=== PATIENT | female | born 1950 | race Caucasian/White ===

== ENCOUNTER 2016-08-05 07:02 | Inpatient (IN) | payer MEDICARE, OTHER ==
[2016-07-17 10:21] VITALS: BMI 25.0
--- NOTE | 2016-07-17 11:05 | PAT Medication Instructions ---
Service Date July 17, 2016. Current Home Medication List Acetaminophen Tab (Tylenol), 325 MG PO PRN Alum & Mag Hydrox-Simethicone (Mylanta), 1 DOSE PO PRN Amlodipine (Norvasc), 2.5 MG PO QAM Aspirin (Aspirin Ec), 81 MG PO QAM Atorvastatin (Lipitor), 80 MG PO QAM Calcium Carbonate-Vitamin D (Calcium + D), 1 TAB PO BID Metoprolol Tartrate (Lopressor) (Lopressor), 50 MG PO QAM Multivitamins/Minerals (Mvi With Minerals), 1 TAB PO QAM Triamterene/Hctz (Triamterene/Hctz 37.5-25MG), 1 TAB PO QAM Medication Instructions For Your Scheduled Surgery - Hold the following medications the morning of surgery: Alum & Mag Hydrox-Simethicone (Mylanta), 1 DOSE PO PRN Calcium Carbonate-Vitamin D (Calcium + D), 1 TAB PO BID Multivitamins/Minerals (Mvi With Minerals), 1 TAB PO QAM Triamterene/Hctz (Triamterene/Hctz 37.5-25MG), 1 TAB PO QAM - Take the following medications the morning of surgery with a sip of water OTHERWISE NOTHING TO EAT OR DRINK AFTER MIDNIGHT: Amlodipine (Norvasc), 2.5 MG PO QAM Aspirin (Aspirin Ec), 81 MG PO QAM Atorvastatin (Lipitor), 80 MG PO QAM Acetaminophen Tab (Tylenol), 325 MG PO PRN (may take if needed up to 4 hours prior to surgery) Metoprolol Tartrate (Lopressor) (Lopressor), 50 MG PO QAM - Take the following medications as scheduled the night before surgery: Acetaminophen Tab (Tylenol), 325 MG PO PRN Calcium Carbonate-Vitamin D (Calcium + D), 1 TAB PO BID If you have any questions please call us at [phone] or [phone] or [phone]
[2016-07-17 11:32] LABS: BASO % 0.3 %; BASO ABS # 0.04 K/uL (0-0.2); COMPLETE YES; EOS % 1.5 %; HEMATOCRIT 42.9 % (37-47); IG% 0.2 %; LYMPH % 22.7 %; LYMPH ABS # 2.76 K/uL (1.2-3.4); MEAN CELL VOLUME 94.7 fL (80-100); MEAN CORPUSCULAR HEMOGLOBIN 31.1 pg (25-34); MEAN CORPUSCULAR HGB CONC 32.9 g/dl (32-36); MEAN PLATELET VOLUME 10.9 fL (7.4-10.4); MONO % 6.3 %; PLATELET COUNT 205 K/uL (130-400); RED BLOOD COUNT 4.53 M/uL (4.2-5.4); WHITE BLOOD COUNT 12.14 K/uL (4.8-10.8)
[2016-07-17 11:37] LABS: URINE APPEARANCE CLEAR (CLEAR); URINE BILIRUBIN NEG (NEG); URINE COLOR YELLOW; URINE NITRITE NEG (NEG); URINE PH 7.5 (4.5-7.5); URINE SPECIFIC GRAVITY 1.008 (1.000-1.030); UROBILINOGEN NEG (NEG)
[2016-07-17 11:38] LABS: MANUAL MICROSCOPIC REQUIRED? NO; REVIEW REQ? NO
--- NOTE | 2016-07-17 11:48 | DIAGNOSTIC IMAGING REPORT ---
CHEST PREADMISSION(PA/LAT) CLINICAL HISTORY: Preoperative chest COMPARISON STUDY: No previous studies for comparison. FINDINGS: The cardiac and mediastinal contours are normal. There is no evidence of focal pulmonary consolidation. There is no evidence of failure. No pleural effusions are visualized.[ IMPRESSION: No active disease in the chest. Electronically signed by: Dallas Garcia M.D. 07/17/2016 11:46 AM Dictated Date/Time: 07/17/2016 11:45 AM
[2016-07-17 12:50] LABS: BUN/CREATININE RATIO 12.4 (10-20); CREATININE 0.7 mg/dl (0.60-1.20); POTASSIUM 3.6 mmol/L (3.5-5.1)
[2016-07-17 13:08] LABS: CALCIUM 10.4 mg/dl (8.5-10.1)
[2016-08-05] VITALS (9 sets, daily range): BP systolic 103–151; BP diastolic 55–74; PULSE 59–80; TEMP 36.3–36.8; O2SAT 92–99; Ht 170.2 cm; Wt 72.8 kg
[~2016-08-05] VITALS: Ht 170.2 cm; Wt 72.8 kg
[~2016-08-05 07:02] MED LIST: ACET325T96 PO; ALUM-30 PO; AMLO2.5T PO; ASPI81TA28 PO; ATOR-26 PO; ATROPINE SULFATE 0.1 MG/ML 5ML SYR IV PRN; CALC600T9 PO; CLINDAMYCIN 600 MG/54 ML D5W IV SCH; EpHEDrine SULFATE INJ 50 MG/ML AMP IV PRN; FENTANYL CITRATE INJ 50 MCG/1 ML 2 ML VIAL IV PRN; HYDROmorphone INJ 1 MG/ML SYR IV PRN; LACTATED RINGER'S 1000ML 1,000 ML IV SCH; METO50TA16 PO; MULT-513 PO; ONDANSETRON INJ 2 MG/ML 2 ML VIAL IV PRN; TRIATAB3 PO
[2016-08-05] MEDS ORDERED: FENTANYL CITRATE INJ 50 MCG/1 ML 2 ML VIAL ONE ×2 (08:25→09:19)
[2016-08-05] MEDS ORDERED: MIDAZOLAM HCL 1 MG/ML 2ML VIAL ONE (08:25)
--- NOTE | 2016-08-05 08:26 | History & Physical Bridge Note ---
H&P Re-Evaluation Bridge Note: I have examined the patient, reviewed the History & Physical and in the interval since the performance of the History & Physical I have noted the following changes of clinical significance: No changes noted
--- NOTE | 2016-08-05 08:27 | History and Physical ---
History & Physical Date Aug 05, 2016. Chief Complaint back and leg pain History of Present Illness The patient is a 66 year old female with complaints of Additional History Hepatic Disease: No Endocrine Disorder: No Kidney Disease: No Hypertension: No Heart Disease: No Bleeding Tendencies: No Infectious Diseases: No Allergies Coded Allergies: Penicillins (Unverified Allergy, Unknown, THROAT SWELLING-ANAPHYLACTIC, 08/05/16) Sulfa Antibiotics (Unverified Allergy, Unknown, GI UPSET-NAUSEA AND VOMITING, 08/05/16) Home Medications Scheduled Acetaminophen Tab (Tylenol), 325 MG PO PRN Alum & Mag Hydrox-Simethicone (Mylanta), 1 DOSE PO PRN Amlodipine (Norvasc), 2.5 MG PO QAM Aspirin (Aspirin Ec), 81 MG PO QAM Atorvastatin (Lipitor), 80 MG PO QAM Calcium Carbonate-Vitamin D (Calcium + D), 1 TAB PO BID Metoprolol Tartrate (Lopressor) (Lopressor), 50 MG PO QAM Multivitamins/Minerals (Mvi With Minerals), 1 TAB PO QAM Triamterene/Hctz (Triamterene/Hctz 37.5-25MG), 1 TAB PO QAM Physical Examination Skin: warm/dry, no rash Eyes: normal inspection, EOMI, sclerae normal ENT: normal ENT inspection, pharynx normal Head: normocephalic, atraumatic Neck: supple, no adenopathy, trachea midline Respiratory/Chest: lungs clear, normal breath sounds, no respiratory distress Cardiovascular: regular rate, rhythm, no edema, no murmur Abdomen / GI: normal bowel sounds, non tender Back: normal inspection Extremities: normal inspection, normal range of motion Neurologic/Psych: no motor/sensory deficits, alert, normal reflexes, oriented x 3 Diagnosis lumbar stenosis Plan of Treatment decompression fusion L4-5
[2016-08-05] MEDS ORDERED: BUPIVACAINE/EPINEPHRINE 0.5% MPF 1:200,000 30 ML VIAL ONE (08:46)
[2016-08-05] MEDS ORDERED: BACITRACIN 50000 UNIT VIAL ONE (08:46)
[2016-08-05] MEDS ORDERED: HYDROmorphone INJ 2 MG/ML SYR/VIAL ONE ×2 (09:19→10:30)
[2016-08-05] MEDS ORDERED: SODIUM CHLORIDE 0.9% PF 50 ML VIAL ONE (09:48)
[2016-08-05] MEDS ORDERED: FLOSEAL HEMOSTATIC MATRIX 10ML TOP ONE (10:27)
[2016-08-05] MEDS ORDERED: SODIUM CHLORIDE 0.9% 1000ML 1,000 ML IV SCH (10:28)
--- NOTE | 2016-08-05 10:28 | [facility] Post Operative Brief Note ---
Immediate Operative Summary Operative Date Aug 05, 2016. Pre-Operative Diagnosis Lumbar Stenosis Post-Operative Diagnosis Lumbar Stenosis Procedure(s) Performed L4-L5 Lumbar Laminectomy, Decompression; Pedicle Screw Fixation; Placement of Interbody Device; L4-L5 Posterolateral Fusion; Application of Yulissa; Bone Morphogenetic Protein Surgeon Dr. Panchal Container Shop Welder Surgeon(s) Lynn Malave PA-C Estimated Blood Loss 300 cc Findings stenosis Specimens none per surgeon
[2016-08-05] MEDS ORDERED: METOCLOPRAMIDE HCL INJ 5 MG/ML 2 ML VIAL IV PRN (10:30)
[2016-08-05] MEDS ORDERED: DC PCA PRN (10:30)
[2016-08-05] MEDS ORDERED: MAGNESIUM HYDROXIDE SUSP 30 ML UDC PO PRN (10:30)
[2016-08-05] MEDS ORDERED: DO NOT ADMINISTER PNEUMOCOCCAL VACCINE PRN ×2 (10:30)
[2016-08-05] MEDS ORDERED: ONDANSETRON INJ 2 MG/ML 2 ML VIAL IV PRN (10:30)
[2016-08-05] MEDS ORDERED: SOD PHOSPHATE/SOD BIPHOSPHATE ENEMA 132 ML BTL PR PRN (10:30)
[2016-08-05] MEDS ORDERED: ALUMINUM/MAGNESIUM SUSP 30 ML UDC PO PRN (10:30)
[2016-08-05] MEDS ORDERED: BISACODYL 10 MG SUPP PR PRN (10:30)
[2016-08-05] MEDS ORDERED: NALOXONE HCL 0.4 MG/1 ML VIAL/CARP IV PRN ×2 (10:30)
[2016-08-05] MEDS ORDERED: ACETAMINOPHEN 500 MG TAB PO PRN (10:30)
[2016-08-05] MEDS ORDERED: DO NOT ADMINISTER FLU VACCINE PRN ×3 (10:30)
[2016-08-05] MEDS ORDERED: LORAZEPAM 0.5 MG TAB PO PRN (10:30)
[2016-08-05] MEDS ORDERED: PROMETHAZINE HCL INJ 12.5 MG in SODIUM CHLORIDE 0.9% 50ML 50 ML IV PRN (10:30)
[2016-08-05] MEDS ORDERED: FAMOTIDINE 20 MG TAB PO PRN (10:30)
[2016-08-05] MEDS ORDERED: LORAZEPAM INJ 0.5 MG in SYRINGE 0 ML IV PRN (10:30)
[2016-08-05] MEDS ORDERED: ACETAMINOPHEN IV 100 ML IV PRN (10:30)
[2016-08-05] MEDS ORDERED: hydrOXYzine HCL 25 MG TAB PO PRN (10:30)
--- NOTE | 2016-08-05 10:31 | DIAGNOSTIC IMAGING REPORT ---
INTRAOPERATIVE FLUOROSCOPIC IMAGES OF THE LUMBAR SPINE CLINICAL HISTORY: L4-5 DECOMPRESSION/FUSION/INTERBODY COMPARISON STUDY: No previous studies for comparison. Fluoroscopy time: 15.1 seconds. FINDINGS: These 2 fluoroscopic images demonstrate an L4-5 discectomy with interbody spacer placement. There is a posterior decompression with bilateral particle screws at the L4-L5 levels. Hardware is intact. There are interconnecting rods. IMPRESSION: Expected findings following L4-5 discectomy and bilateral pedicle screw fusion. Electronically signed by: Chivo Woodall M.D. 08/05/2016 10:30 AM Dictated Date/Time: 08/05/2016 10:29 AM
[2016-08-05] MEDS ORDERED: EpHEDrine SULFATE 50MG/5ML SYR ONE (10:32)
[2016-08-05] MEDS ORDERED: LIDOCAINE HCL 2% 2 ML VIAL (20MG/ML) ONE (10:32)
[2016-08-05] MEDS ORDERED: NEOSTIGMINE METHYLSULFATE 1 MG/ML 10ML VIAL ONE (10:32)
[2016-08-05] MEDS ORDERED: DEXAMETHASONE SOD INJ 4 MG/ML VIAL ONE (10:32)
[2016-08-05] MEDS ORDERED: PROPOFOL IV EMULSION 10 MG/ML 20 ML VIAL IV ONE (10:32)
[2016-08-05] MEDS ORDERED: GLYCOPYRROLATE INJ 0.2 MG/ML VIAL ONE (10:32)
[2016-08-05] MEDS ORDERED: ROCURONIUM BROMIDE 10 MG/ML 5 ML VIAL ONE (10:32)
[2016-08-05] MEDS ORDERED: KETOROLAC TROMETHAMINE 30 MG/ML VIAL ONE (10:32)
[2016-08-05] MEDS ORDERED: ONDANSETRON INJ 2 MG/ML 2 ML VIAL ONE (10:32)
[2016-08-05] MEDS ORDERED: HYDROmorphone HCL 0.5MG/ML 50 ML CASSETTE ONE (10:46)
--- NOTE | 2016-08-05 11:19 | Anesthesiology Progress Note ---
Anesthesia Post Op Note Date & Time Aug 05, 2016 at 11:18 Vital Signs Pain Intensity: 0 Vital Signs Past 12 Hours Date Time Temp Pulse Resp B/P (MAP) Pulse Ox O2 Delivery O2 Flow Rate FiO2 08/05/16 11:15 70 18 118/64 100 Nasal Cannula 4 08/05/16 11:05 67 12 122/54 100 Nasal Cannula 4 08/05/16 10:55 68 13 113/52 100 Mask 10 08/05/16 10:45 74 18 119/55 100 Mask 10 08/05/16 10:39 36.3 86 13 121/57 100 Mask 10 08/05/16 08:07 36.7 80 18 151/74 97 Room Air Notes Mental Status: alert / awake / arousable, participated in evaluation Pt Amnestic to Procedure: Yes Nausea / Vomiting: adequately controlled Pain: adequately controlled Airway Patency, RR, SpO2: stable & adequate BP & HR: stable & adequate Hydration State: stable & adequate Anesthetic Complications: no major complications apparent
[2016-08-05] MEDS: LACTATED RINGER'S 1000ML 1,000 ML IV SCH ×2 (12:41→17:51)
--- NOTE | 2016-08-05 12:59 | OPERATIVE REPORT ---
DATE OF OPERATION: 08/05/2016 PREOPERATIVE DIAGNOSES: Spinal stenosis, herniated nucleus pulposus L4-5. POSTOPERATIVE DIAGNOSES: Same. PROCEDURES PERFORMED: 1. Lumbar decompression, medial facetectomy, and foraminotomy L3-4, L4-5. 2. Posterior spinal fusion L4-5. 3. Placement posterior instrumentation using Orthros rods and screws L4-5. 4. Interbody fusion L3-4. 5. Placement of PEEK cage 12 x 22 mm at L4-5. 6. Placement of locally harvested morcellized autograft posterior gutters. 7. Placement of Infuse collagen sponge combined with Mastergraft in posterior gutters and Yulissa bone grafting in the interbody space. SURGEON: Dr. Aureliano Panchal. MAINTENANCE PERSON: Lynn Malave PA-C. Due to the complex nature of the procedure, the entire surgery was performed with the printer's assistant of TONI Emmanuel. The media assistant, under direct supervision, was involved in the actual performance of all aspects of the surgical procedure including hemostasis, tissue retraction and incision, instrument management, patient positioning, and wound closure. ANESTHESIA: General. DISPOSITION: The patient awakened and taken to PACU in stable condition. HISTORY OF PATIENT'S PROBLEMS: This is a 66-year-old female who presents with above-mentioned diagnosis after failing an extensive course of nonoperative care, elected to undergo the above-mentioned procedure. Risks, benefits, pros, cons, and alternatives outlined in detail preoperatively. DESCRIPTION OF PROCEDURE: The patient was met with preoperatively, case discussed and all questions were addressed. At that point, the patient was taken back to the operative suite and after undergoing successful general endotracheal intubation via department of anesthesia was placed in prone position on Silverio table atop Mike frame. All bony prominences were well padded and the eyes were inspected to ensure there was no external pressure placed upon them. At this point, lumbar spine was prepped and draped in normal sterile fashion. Sharp dissection with the assistance of Bovie cautery was performed down to and exposing the lamina and transverse processes of L4-5 bilaterally. From a caudal to cephalad fashion, complete laminectomy of L4 was performed, partial laminectomy of L3 was performed as well as medial facetectomies, foraminotomies bilaterally to address significant facet hypertrophy and subsequent stenosis. After this was complete, pedicle screws were then placed in L4-5 bilaterally with assistance of fluoroscopy and appropriate size silviano provisionally placed. Through a transforaminal approach on the left, a complete discectomy of L4-5 was performed. Endplates were curetted to subcortical bleeding bone and a 12 x 22 mm PEEK cage filled with Yulissa bone grafting tapped into position. The rods were then compressed, locked into final position bilaterally and transverse processes of L4-5 burred to subcortical bleeding bone. Infuse collagen sponge combined with Mastergraft and locally harvested morcellized autograft was placed in the posterior gutters. A 7 flat SAMANTHA drain was inserted. Incision was closed with #1 Vicryl in the fascia, 2-0 Vicryl subcutaneously, 4-0 Monocryl for final skin closure. Steri-Strips and sterile dressing placed. The patient was awakened and taken to PACU in stable condition. I attest to the content of the Intraoperative Record and any orders documented therein. Any exception s are noted below.
[2016-08-05] MEDS: HYDROmorphone HCL 0.5MG/ML 50 ML CASSETTE IV PRN ×3 (15:07→23:05)
[2016-08-05] MEDS: DEXAMETHASONE INJ 6 MG in SYRINGE 0 ML IV SCH (17:51)
[2016-08-05] MEDS: CLINDAMYCIN IV 600 MG in DEXTROSE 5% ADD-VANTAGE 50ML 50 ML IV SCH (17:52)
[2016-08-05] MEDS: DOCUSATE SODIUM/SENNA 50/8.6MG TAB PO SCH (21:06)
[2016-08-06] MEDS: CLINDAMYCIN IV 600 MG in DEXTROSE 5% ADD-VANTAGE 50ML 50 ML IV SCH (01:08)
[2016-08-06] MEDS: LACTATED RINGER'S 1000ML 1,000 ML IV SCH (01:09)
[2016-08-06] MEDS: DEXAMETHASONE INJ 6 MG in SYRINGE 0 ML IV SCH ×2 (01:09→15:23)
[2016-08-06 03:35] VITALS: BP 121/69; PULSE 77; TEMP 36.8; O2SAT 91
[2016-08-06] MEDS ORDERED: NURSING VERBAL MED ORDER ONE (05:45)
[2016-08-06] MEDS ORDERED: HYDROmorphone INJ 1 MG/ML SYR IV PRN (06:00)
[2016-08-06] MEDS ORDERED: OXYCODONE HCL IR 5 MG TAB (IMMEDIATE RELEASE) PO PRN (06:00)
[2016-08-06 07:25] VITALS: O2SAT 91
[2016-08-06 07:36] VITALS: BP 134/74; PULSE 70; TEMP 36.7; O2SAT 95
[2016-08-06 07:36] LABS: BASO ABS # 0.01 K/uL (0-0.2); COMPLETE YES; HEMATOCRIT 34.1 % (37-47); IG% 0.3 %; LYMPH ABS # 1.05 K/uL (1.2-3.4); MEAN CELL VOLUME 92.9 fL (80-100); MEAN CORPUSCULAR HEMOGLOBIN 31.1 pg (25-34); MEAN CORPUSCULAR HGB CONC 33.4 g/dl (32-36); MEAN PLATELET VOLUME 11.3 fL (7.4-10.4); MONO % 4.2 %; NEUT % 90.5 %; PLATELET COUNT 156 K/uL (130-400); RED BLOOD COUNT 3.67 M/uL (4.2-5.4); WHITE BLOOD COUNT 21.18 K/uL (4.8-10.8)
[2016-08-06] MEDS ORDERED: RXC5 PO (07:45)
--- NOTE | 2016-08-06 07:46 | Discharge Instructions ---
Discharge Instructions Date of Service Aug 06, 2016. Admission Reason for Admission: Spinal Stenosis Discharge Discharge Diagnosis / Problem: stenosis Discharge Goals Goal(s): Improve function Activity Recommendations Activity Limitations: per Instructions/Follow-up section . Instructions / Follow-Up Instructions / Follow-Up ACTIVITY RECOMMENDATIONS: SELF CARE INSTRUCTIONS AFTER THORACIC/LUMBAR FUSIONS 1. You may walk to your tolerance. It is good exercise for your legs and back. Expect some back and intermittent leg aches and pains. 2. You may perform "counter-top" level activities (make a sandwich, garrett with a project, etc.). 3. No bending or lifting of more than 10 pounds or back twisting of any nature (roll like a log when turning in bed). 4. You may ride in a car for 20-30 minutes at a time. No driving until after your first visit with your doctor. 5. Frequent changes of position and restricting sitting to 30 minutes at a time will help limit the amount of back spasms and stiffness you may experience. 6. You may discontinue the use of ambulatory aids (cane, crutches, etc.) once your strength and confidence allow. 7. You may sales and catering coordinator the shower and let water strike your incision when you arrive home at least once daily. Do not take a tub bath, sit in a hot tub or go into a swimming pool until after your first recheck in the office. SPECIAL CARE INSTRUCTIONS: VERY IMPORTANT TO READ AND REVIEW A. Your surgical incision has been closed with a cosmetic suture under the skin that will dissolve in about 6 weeks. In 14 days, you can use a pair of clean scissors and cut the suture that is left outside of the skin at the ends of your incision. 1. The small skin tapes can be removed 7 days after surgery if they have not fallen off by that point. 2. You may keep the wound open to air as much as possible to promote healing after post-op day number 5 unless told otherwise by your doctor. 3. If you think the wound looks like it is becoming infected (redness or worsening drainage) and/or you are experiencing fever, chill or worsening back pain and muscle spasms, contact the office so that we may evaluate you as soon as possible. B. Complications are uncommon, but please contact us if you have any signs or symptoms of: 1. wound infection (fever higher than 102.5 degrees F, redness, separation of wound, drainage, or increasing pain from the incision) 2. blood clots in legs (pain, swelling, redness and warmth in legs) 3. urinary tract infection (fever higher than 102.5 degrees F, burning upon urination or increased frequency of urination) 4. nerve problems (inability to walk on your toes or heels, numbness, loss of bowel or bladder control) 5. any other symptoms that concern you C. Please call the office at if you have any concerns or questions about your operation or recovery. D. No smoking! Smoking drastically decreases the chance of a solid fusion. E. Do not take any anti-inflammatory medications (Indocin, Advil, Motrin, Aspirin, Naprosyn, etc.) as these may inhibit the chance of a solid fusion. Tylenol is okay to take for pain. MANAGING PAIN AFTER SPINAL SURGERY 1. Narcotic medication is intended for short-term use and will be provided for surgical pain. Surgical pain usually lasts for a period of 4-6 weeks. Narcotic medication includes Percocet, Vicodin, Darvocet, Tylenol #3 or Lortab. 2. Longer-term pain is more appropriately treated with non-narcotic medication such as Tylenol ES. 3. Muscle spasm is not appropriately treated with narcotics. Muscle relaxers such as Soma, Flexeril or Skelaxin can be used along with Tylenol ES. 4. Remember that we all live with some "aches and pains". This is not unusual or uncommon after an injury or as we get older. a. Back pain is expected and may include muscle spasms for 4 to 6 weeks after surgery. The pain should gradually improve. If the pain worsens for no apparent reason, please contact the office. b. Intermittent leg pain may also be experienced and should not be concerned about unless it worsens for no apparent reason. If so, please contact the office. 5. We will provide appropriate medication within the normal guidelines of their prescribed use. We will also be very cautious and aware of potential abuse and extended duration of patients' medication needs. a. Pain medications are for your comfort and to assist with sleep and rest so that the tissue can heal. They are not provided in order to return to normal activity and should not be used through the day. To do so or worsening pain at night can result from ongoing tissue damage and development of tolerance to the prescribed medicine. 6. Please allow 2-3 days to process refills. Prescriptions will not be mailed but must be picked up at the office. FOLLOW UP VISIT: Keep your scheduled follow-up appointment. Any questions, please call the office at . Current Hospital Diet Patient's current hospital diet: Regular Diet Discharge Diet Recommended Diet: Regular Diet Procedures Procedures Performed: L4-L5 Lumbar Laminectomy, Decompression; Pedicle Screw Fixation; Placement of Interbody Device; L4-L5 Posterolateral Fusion; Application of Yulissa; Bone Morphogenetic Protein Pending Studies Studies pending at discharge: no Medical Emergencies . Who to Call and When: Medical Emergencies: If at any time you feel your situation is an emergency, please call 911 immediately. . Non-Emergent Contact Non-Emergency issues call your: Primary Care Provider . "Provider Documentation" section prepared by Aureliano Panchal. . VTE Core Measure Inpt VTE Proph given/why not?: Jatin Jay, SCD's
[2016-08-06 08:01] VITALS: O2SAT 95
--- NOTE | 2016-08-06 08:07 | PROGRESS NOTE ---
DATE: 08/06/2016 Postop day #1. Back pain is controlled. Leg pain markedly improved. Vital signs stable. T-max 36.8. SAMANTHA drained 75 mL. Hematocrit this a.m. is 34.1. PHYSICAL EXAMINATION: She is quite comfortable, sitting in bed, has excellent strength to testing. ASSESSMENT: Status post lumbar decompression and fusion. PLAN: At this time, will initiate physical therapy, advance her bowel regimen and anticipate home possibly tomorrow.
[2016-08-06 08:11] LABS: CREATININE 0.65 mg/dl (0.60-1.20); POTASSIUM 3.8 mmol/L (3.5-5.1)
[2016-08-06] MEDS: ATORVASTATIN 40 MG TAB PO SCH (08:41)
[2016-08-06] MEDS: AMLODIPINE BESYLATE 5 MG TAB PO SCH (08:42)
[2016-08-06] MEDS: ASPIRIN 81 MG ECTAB PO SCH (08:42)
[2016-08-06] MEDS: TRIAMTERENE/HCTZ 37.5/25MG TAB PO SCH (08:42)
[2016-08-06] MEDS: METOPROLOL TARTRATE 50 MG TAB PO SCH (08:43)
[2016-08-06 08:48] LABS: CALCIUM 9.5 mg/dl (8.5-10.1)
--- NOTE | 2016-08-06 09:40 | Anesthesiology Progress Note ---
Anesthesia Post Op Note Date & Time Aug 06, 2016 at 09:39 Vital Signs Pain Intensity: 0.0 Vital Signs Past 12 Hours Date Time Temp Pulse Resp B/P (MAP) Pulse Ox O2 Delivery O2 Flow Rate FiO2 08/06/16 08:01 95 Room Air 08/06/16 07:36 36.7 70 18 134/74 (94) 95 Room Air 08/06/16 07:25 91 Room Air 08/06/16 03:35 36.8 77 16 121/69 (86) 91 Room Air 08/06/16 00:15 Room Air 08/05/16 23:04 36.8 76 16 111/66 (81) 92 Room Air Notes Mental Status: alert / awake / arousable, participated in evaluation Pt Amnestic to Procedure: Yes Nausea / Vomiting: adequately controlled Pain: adequately controlled Airway Patency, RR, SpO2: stable & adequate BP & HR: stable & adequate Hydration State: stable & adequate Anesthetic Complications: no major complications apparent
[2016-08-06 15:04] VITALS: BP 111/66; PULSE 65; TEMP 36.9; O2SAT 96
[2016-08-06] MEDS: DOCUSATE SODIUM/SENNA 50/8.6MG TAB PO SCH (20:36)
[2016-08-06 22:37] VITALS: BP 126/72; PULSE 63; TEMP 36.7; O2SAT 94
[2016-08-07] MEDS ORDERED: POLYETHYLENE (MIRALAX) 17 GM PACK PO SCH (06:00)
[2016-08-07 06:02] VITALS: BP 146/78; PULSE 60; TEMP 36.6; O2SAT 95
[2016-08-07] MEDS: ASPIRIN 81 MG ECTAB PO SCH (07:36)
[2016-08-07] MEDS: AMLODIPINE BESYLATE 5 MG TAB PO SCH (07:36)
[2016-08-07] MEDS: ATORVASTATIN 40 MG TAB PO SCH (07:37)
[2016-08-07] MEDS: TRIAMTERENE/HCTZ 37.5/25MG TAB PO SCH (07:37)
[2016-08-07] MEDS: METOPROLOL TARTRATE 50 MG TAB PO SCH (07:37)
[2016-08-07 07:40] VITALS: BP 142/74; PULSE 72; TEMP 36.8; O2SAT 95
[2016-08-07 07:48] VITALS: O2SAT 95
[2016-08-07 09:51] VITALS: BP 142/74; PULSE 72; TEMP 36.8; O2SAT 95
--- NOTE | 2016-08-07 13:29 | DISCHARGE SUMMARY ---
PRINCIPAL DIAGNOSIS: Spinal stenosis. HOSPITAL COURSE FOLLOWS: On August 05, patient underwent lumbar decompression and fusion, tolerated this well and taken to the orthopedic floor postoperatively. Postop day #1, she was up and ambulatory, progressed to postop day #2. Pain well controlled. SAMANTHA drain decreased appropriately. Bowels were working well. Subsequently discharged to home. Discharge orders and instructions found on the chart for further review.
== END 2016-08-07 12:50 | disposition home or self-care (01) | DRG 460 ==
LOC: C.ACU 07:02 → C.3E 08:30 → ENRESERV 11:05
PROVIDERS: ADMIT Orthopaedic Surgery Orthopaedic Surgery of the Spine; ATTEND Orthopaedic Surgery Orthopaedic Surgery of the Spine
PROC: 0SG00AJ Fusion of Lumbar Vertebral Joint with Interbody Fusion Device, Posterior Approach, Anterior Column, Open Approach (ICD-10-PCS; principal; 2016-08-05 09:15)
PROC: 0SG0071 Fusion of Lumbar Vertebral Joint with Autologous Tissue Substitute, Posterior Approach, Posterior Column, Open Approach (ICD-10-PCS; principal; 2016-08-05 09:15)
DX: M48.06 Spinal stenosis, lumbar region (principal); M51.26 Other intervertebral disc displacement, lumbar region; E11.9 Type 2 diabetes mellitus without complications; I25.10 Atherosclerotic heart disease of native coronary artery without angina pectoris; K21.9 Gastro-esophageal reflux disease without esophagitis; I73.9 Peripheral vascular disease, unspecified; F17.200 Nicotine dependence, unspecified, uncomplicated; Z79.899 Other long term (current) drug therapy; Z79.82 Long term (current) use of aspirin; Z86.718 Personal history of other venous thrombosis and embolism

== ENCOUNTER → 2017-06-03 | Outpatient (CLI) | payer MEDICARE, OTHER ==
[~2017-06-03] MED LIST changes: +ACET-1693 PO; -ACET325T96 PO; -ATROPINE SULFATE 0.1 MG/ML 5ML SYR IV PRN; -CLINDAMYCIN 600 MG/54 ML D5W IV SCH; -EpHEDrine SULFATE INJ 50 MG/ML AMP IV PRN; -FENTANYL CITRATE INJ 50 MCG/1 ML 2 ML VIAL IV PRN; -HYDROmorphone INJ 1 MG/ML SYR IV PRN; -LACTATED RINGER'S 1000ML 1,000 ML IV SCH; -ONDANSETRON INJ 2 MG/ML 2 ML VIAL IV PRN; +RXC5 PO
== END | disposition home or self-care (01) ==
LOC: C.LABMFLN 11:55
PROVIDERS: ATTEND Family Medicine
DX: R35.0 Frequency of micturition (principal)

== ENCOUNTER 2019-04-28 05:40 | Inpatient (IN) ==
--- NOTE | 2019-04-05 08:39 | PAT Medication Instructions ---
Medication Instructions Date of Service April 05, 2019 Home Medications acetaminophen [Tylenol] 325 mg PO QID PRN amlodipine 2.5 mg PO QAM atorvastatin 80 mg PO PM calcium carbonate-vitamin D3 [Calcium 600 + D(3)] 2 cap PO BID glipizide 2.5 mg PO QAM metoprolol succinate 50 mg PO QPM multivitamin 1 tab PO PM triamterene-hydrochlorothiazid 1 tab PO QAM DO NOT take the morning of surgery calcium carbonate-vitamin D3 [Calcium 600 + D(3)] 2 cap PO BID glipizide 2.5 mg PO QAM triamterene-hydrochlorothiazid 1 tab PO QAM Take morning of surgery With a small sip of water, OTHERWISE NOTHING TO EAT OR DRINK AFTER MIDNIGHT: acetaminophen [Tylenol] 325 mg PO QID PRN (okay to take up to 4 hours prior to surgery if needed) amlodipine 2.5 mg PO QAM Take evening before surgery acetaminophen [Tylenol] 325 mg PO QID PRN (if needed) atorvastatin 80 mg PO PM calcium carbonate-vitamin D3 [Calcium 600 + D(3)] 2 cap PO BID metoprolol succinate 50 mg PO QPM multivitamin 1 tab PO PM Other Notes If you have any questions please call us at [phone] or [phone] or [phone] or [phone]
--- NOTE | 2019-04-05 12:34 | PAT Medication Instructions ---
Medication Instructions Date of Service April 05, 2019 Home Medications acetaminophen [Tylenol] 325 mg PO QID PRN amlodipine 2.5 mg PO QAM atorvastatin 80 mg PO PM calcium carbonate-vitamin D3 [Calcium 600 + D(3)] 2 cap PO BID glipizide 2.5 mg PO QAM metoprolol succinate 50 mg PO QPM multivitamin 1 tab PO PM triamterene-hydrochlorothiazid 1 tab PO QAM DO NOT take the morning of surgery calcium carbonate-vitamin D3 [Calcium 600 + D(3)] 2 cap PO BID glipizide 2.5 mg PO QAM triamterene-hydrochlorothiazid 1 tab PO QAM Take morning of surgery With a small sip of water, OTHERWISE NOTHING TO EAT OR DRINK AFTER MIDNIGHT: acetaminophen [Tylenol] 325 mg PO QID PRN (if needed, may be taken up to four hours before surgery) amlodipine 2.5 mg PO QAM Take evening before surgery acetaminophen [Tylenol] 325 mg PO QID PRN (if needed) atorvastatin 80 mg PO PM calcium carbonate-vitamin D3 [Calcium 600 + D(3)] 2 cap PO BID metoprolol succinate 50 mg PO QPM multivitamin 1 tab PO PM Other Notes If you have any questions please call us at [phone] or [phone] or [phone] or [phone]
--- NOTE | 2019-04-06 08:16 | Anesthesiology Consultation ---
Date of Service April 06, 2019 Assessment & Plan (1) Encounter for pre-operative examination: - Patient scheduled to see cardiology prior to surgery. Awaiting office visit note ([facility] Cardiology). - Check [facility] AM DOS Chart Review Chart Review: Patient seen in Pre Admission Testing Teaching & Discussion Pre-Anesthesia Teaching/Discussion Notes: Instructed NPO after midnight before surgery,except medications with 15 cc of water. Medication instructions provided according to the PAT guidelines. History Surgery Operation Date: 04/28/19 07:40 Proposed Procedures p L2-L4 Decompression, L2-L5 Fusion, L4-L5 Hardware Removal, Spinal Cord Monitoring - Aureliano Panchal, Height/Weight Height: 5 ft 6.75 in Weight: 67.4 kg Allergies Allergy/AdvReac Type Severity Reaction Status Date / Time Penicillins Allergy Severe THROAT Verified 03/30/19 13:23 SWELLING-ANAPHYLACTIC adhesive Allergy Rash Verified 03/30/19 13:24 Milk Containing Products Allergy Rash Verified 03/30/19 13:24 Sulfa (Sulfonamide AdvReac Mild GI Verified 03/30/19 13:23 Antibiotics) UPSET-NAUSEA AND VOMITING Medications Home Medications Medication Instructions Recorded Confirmed Last Taken acetaminophen [Tylenol] 325 mg PO QID PRN 03/30/19 03/30/19 Unknown amlodipine 2.5 mg PO QAM 03/30/19 03/30/19 Unknown atorvastatin 80 mg PO PM 03/30/19 03/30/19 Unknown calcium carbonate-vitamin D3 2 cap PO BID 03/30/19 03/30/19 Unknown [Calcium 600 + D(3)] glipizide 2.5 mg PO QAM 03/30/19 03/30/19 Unknown metoprolol succinate 50 mg PO QPM 03/30/19 03/30/19 Unknown multivitamin 1 tab PO PM 03/30/19 03/30/19 Unknown triamterene-hydrochlorothiazid 1 tab PO QAM 03/30/19 03/30/19 Unknown Past Medical History Medical History CAD (coronary artery disease) CAD s/p inferior wall STEMI 2001 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 Clark/[facility] Spinal stenosis Exercise / Class Metabolic Activity II 4-5 Yardwork/Stairs/Walk up hill Past Family History Family History Mother Family history of diabetes mellitus Other No family history of adverse response to anesthesia Past Surgical History Surgical History History of tgfsc-nbpfn-zdnqpuo bypass B/L LE (2005) History of cardiac cath 2002- stent x 1 History of colonoscopy History of lumbar fusion [facility] 2016 History of shoulder surgery Left History of tonsillectomy History of tooth extraction History of tubal ligation Past Anesthesia History No Hx of Anesthesia Complications and No Family Hx of Anesthesia Complications History of PONV No Hx of PONV and No Hx of Motion Sickness Social History Smoking Status: Current every day smoker tobacco type: cigarettes Smoking cigarettes per day: 1/2 ppd x several years Do You Dip or Chew Tobacco: No Hx Alcohol Use: No Hx Substance Use: No substance use type: does not use Review of Systems Patient denies chest pain, shortness of breath, dyspnea on exertion, cough, wheezing, palpitations. Physical Exam Vital Signs VITALS BP 134/78 P 67 TEMP 98.6 SP02 96%RA RESP 18 PHYSICAL Full neck and c-spine range of motion. Full TMJ range of motion. TMD 3.5 finger breaths Mallampati Score 1 Dentition: full dentures upper/lower Lungs: clear throughout to auscultation Cardiac: regular rate and rhythm, no murmurs noted Spine: normal Carotid arteries: negative bruit Extremities: no edema Testing Laboratory Results 04/06/19 08:35 04/06/19 08:35 PT 10.1 Seconds (9.0-12.0) 04/06/19 08:35 INR 1.0 (0.9-1.1) 04/06/19 08:35 APTT 32.0 Seconds (21.0-31.0) H 04/06/19 08:35 Urine Color Yellow 04/06/19 08:35 Urine Appearance Clear (Clear) 04/06/19 08:35 Urine pH 7.5 (4.5-7.5) 02/04/20 08:35 Ur Specific Warner 1.012 (1.000-1.030) 04/06/19 08:35 Urine Protein Negative (Negative) 04/06/19 08:35 Urine Glucose (UA) Negative (Negative) 04/06/19 08:35 Urine Ketones Negative (Negative) 04/06/19 08:35 Urine Nitrite Negative (Negative) 04/06/19 08:35 Ur Leukocyte Esterase 1+ (Negative) H 04/06/19 08:35 Urine WBC (Auto) 1-5 /hpf (0-5) 04/06/19 08:35 Urine RBC (Auto) 0-4 /hpf (0-4) 04/06/19 08:35 U Hyaline Cast (Auto) 1-5 /lpf (0-5) 04/06/19 08:35 U Epithel Cells (Auto) >30 /lpf (0-5) H 04/06/19 08:35 Urine Bacteria (Auto) Negative (Negative) 04/06/19 08:35 Blood Type A Positive 04/06/19 08:35 Antibody Screen NEGATIVE 04/06/19 08:35 *Surgeon's office made aware of elevated WBC* 01/12/19 HGBA1C 6.9% Electrocardiogram Date: 04/06/19 NSR at 67bpm. Possible inferior infarct (no significant change compared to 07/17/20164 EKG per cardiology, patient subsequently had ECHO 07/30/16) Chest X-Ray Date: 04/06/19 Findings: + NAD Echocardiogram Date: 07/30/16 LVEF 54%. Lcx and/or RCA regional wall motion abnormality. Mild LVE. Grade I DD. Mild MR. Stress Test Date: 07/22/16 Type: nuclear Normal pharmacologic cardiolite stress EKG. Abnormal pharmacologic cardiolite stress test demonstrating left circumflex territory infarct with radha-infarct ischemia. EF 52% (post-stress). Mildly dilated LV with HK involving left circumflex territory. 106% MPHR. Stress test reviewed at 07/24/2016 cardiology office visit- "Nuclear stress on 07/22/16 showed infarct that is consistent with her old IL in 08/2001. No new significant reversible ischemia." Other Testing Carotid artery duplex: 04/15/18: B/L vertebral artery antegrade flow. ALDEN <50% ICA stenosis. LICA 50-69% ICA stenosis.
--- NOTE | 2019-04-06 09:22 | XRay Report ---
XR chest Pre-admission PA/Lat CLINICAL HISTORY: Preoperative evaluation. COMPARISON STUDY: Chest radiograph July 17, 2016. FINDINGS: Lung volumes are normal. Lungs are clear. There is no pneumothorax or pleural effusion. Car diac size is normal. Mediastinal contours are normal. There is no evidence for pulmonary edema. IMPRESSION: No acute cardiopulmonary findings. ACT 112: Negative or not required by law. Electronically signed by: Chivo Woodall M.D. 04/06/2019 9:21 AM
[2019-04-06 09:45] LABS: Appearance Urine Clear (Clear); Bacteria Urine Automated Negative (Negative); Bilirubin Urine Negative (Negative); Blood Urine Negative (Negative); Color Urine Yellow; Epithelial Cell Urine Auto >30 /lpf (0-5); Glucose Urine UA Negative (Negative); Ketones Urine Negative (Negative); Leukocyte Esterase Urine 1+ (Negative); Nitrite Urine Negative (Negative); Protein Urine Negative (Negative); RBC Urine Automated 0-4 /hpf (0-4); Specific Gravity Urine 1.012 (1.000-1.030); Urobilinogen Urine Negative (Negative); pH Urine 7.5 (4.5-7.5)
[2019-04-06 09:48] LABS: BUN Creatinine Ratio 15.6 (10-20); Calcium 10.4 mg/dl (8.5-10.1); Creatinine Clr Calc Pharmacy 64.1 ml/min; Est GFR (African American) 85.8; Potassium 3.5 mmol/L (3.5-5.1)
[2019-04-06 09:55] LABS: Partial Thromboplastin Ratio 1.2; Prothrombin Time 10.1 Seconds (9.0-12.0)
[2019-04-06 09:56] LABS: Basophils # (auto) 0.03 K/uL (0-0.2); Basophils % (auto) 0.2 %; Eosinophils # (auto) 0.13 K/uL (0-0.5); Hematocrit (blood only) 42.6 % (37-47); Hemoglobin 14.6 g/dL (12.0-16.0); Immature Granulocytes # (auto) 0.04 K/uL (0.00-0.02); Immature Granulocytes % (auto) 0.3 %; Lymphocytes # (auto) 1.95 K/uL (1.2-3.4); Lymphocytes % (auto) 15.6 %; Mean Corpuscular Hemoglobin 32.7 pg (25-34); Mean Corpuscular Hgb Conc 34.3 g/dL (32-36); Mean Corpuscular Volume 95.5 fL (80-100); Mean Platelet Volume 11.6 fL (7.4-10.4); Monocytes # (auto) 0.68 K/uL (0.11-0.59); Monocytes % (auto) 5.4 %; Neutrophils # (auto) 9.66 K/uL (1.4-6.5); Neutrophils % (auto) 77.5 %; Platelet Count 202 K/uL (130-400); RDW Coefficient of Variation 13.7 % (11.5-14.5); RDW Standard Deviation 47.9 fL (36.4-46.3); Red Blood Count 4.46 M/uL (4.2-5.4); White Blood Count 12.49 K/uL (4.8-10.8)
--- NOTE | 2019-04-06 12:32 | Electrocardiogram Report ---
Test Reason : Blood Pressure : / mmHG Vent. Rate : 067 BPM Atrial Rate : 067 BPM P-R Int : 148 ms QRS Dur : 120 ms QT Int : 424 ms P-R-T Axes : 060 071 061 degrees QTc Int : 448 ms Normal sinus rhythm Possible Inferior infarct , age undetermined Abnormal ECG When compared with ECG of 17-JUL-2016 11:06, No significant change was found Confirmed by Sky Montaño ([id number]) on 04/06/2019 12:32:16 PM Referred By: Aureliano Panchal Confirmed By:Sky Montaño
[2019-04-28] MEDS ORDERED: CLINDAMYCIN 600 MG/54 ML BAG IV SCH (06:00)
[2019-04-28] MEDS ORDERED: ACETAMINOPHEN 500 MG TAB PO SCH (06:00)
[2019-04-28] MEDS ORDERED: LR 15ML/HR IV SCH (06:00)
[2019-04-28] MEDS ORDERED: GABAPENTIN 300 MG CAP PO SCH (06:00)
[2019-04-28] MEDS ORDERED: CeleBREX 200 MG CAP PO SCH (06:00)
[2019-04-28] MEDS ORDERED: MIDAZOLAM HCL 1 MG/ML 2ML VIAL ONE (06:56)
[2019-04-28] MEDS ORDERED: DEXAMETHASONE SOD INJ 4 MG/ML VIAL ONE (06:56)
[2019-04-28] MEDS ORDERED: PROPOFOL IV EMULSION 10 MG/ML 20 ML VIAL IV ONE (06:56)
[2019-04-28] MEDS ORDERED: HYDROmorphone INJ 2 MG/ML SYR/VIAL ONE (06:56)
[2019-04-28] MEDS ORDERED: ONDANSETRON INJ 2 MG/ML 2 ML VIAL ONE (06:56)
[2019-04-28] MEDS ORDERED: LIDOCAINE HCL 2% 2 ML VIAL/AMP(20MG/ML) INFIL ONE (06:56)
[2019-04-28] MEDS ORDERED: ROCURONIUM BROMIDE 10 MG/ML 5 ML VIAL ONE (06:56)
[2019-04-28] MEDS ORDERED: fentaNYL citrate 100 MCG/2 ML VIAL ONE (06:56)
--- NOTE | 2019-04-28 07:28 | History & Physical Bridge Note ---
Date of Service April 28, 2019 History & Physical Bridge Note I have examined the patient, reviewed the History & Physical and in the interval since the performance of the History & Physical I have noted the following changes of clinical significance: no changes noted
--- NOTE | 2019-04-28 07:29 | History & Physical Report ---
Date of Service April 28, 2019 Assessment & Plan (1) Lumbar stenosis with neurogenic claudication: L2-L4 decompression, L2-L5 fusion, L4-L5 hardware removal Present on Admission?: Yes History of Present Illness Chief Complaint: Back and bilateral leg pain Primary Care Provider: Franco Lopez PA-C This is a 68-year-old female well-known to us that presents with worsening back and bilateral leg pain. After failing extensive course of nonoperative care is here for surgical invention. Allergies Allergy/AdvReac Type Severity Reaction Status Date / Time Penicillins Allergy Severe THROAT Verified 04/28/19 06:33 SWELLING-ANAPHYLACTIC adhesive Allergy Rash Verified 04/28/19 06:33 Milk Containing Products Allergy Rash Verified 04/28/19 06:33 Sulfa (Sulfonamide AdvReac Mild GI Verified 04/28/19 06:33 Antibiotics) UPSET-NAUSEA AND VOMITING Home Medications Home Medications Medication Instructions Recorded Confirmed Type acetaminophen [Tylenol] 325 mg PO QID PRN 03/30/19 04/28/19 History amlodipine 2.5 mg PO QAM 03/30/19 04/28/19 History atorvastatin 80 mg PO PM 03/30/19 04/28/19 History calcium carbonate-vitamin D3 2 cap PO BID 03/30/19 04/28/19 History [Calcium 600 + D(3)] glipizide 2.5 mg PO QAM 03/30/19 04/28/19 History metoprolol succinate 50 mg PO QPM 03/30/19 04/28/19 History multivitamin 1 tab PO PM 03/30/19 04/28/19 History triamterene-hydrochlorothiazid 1 tab PO QAM 03/30/19 04/28/19 History aspirin [Ecotrin] 325 mg PO DAILY 04/14/19 04/28/19 History Past Med/Surg History Medical History CAD (coronary artery disease) CAD s/p inferior wall STEMI 2001 PCI to 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 Results & Data Vital Signs (Past 12 Hours) Vital Signs Temp Pulse Resp BP Pulse Ox 04/28/19 06:37 36.7 C 75 18 165/72 H 99
[2019-04-28] MEDS ORDERED: GLYCOPYRROLATE 0.2 MG/ML VIAL ONE (08:08)
[2019-04-28] MEDS ORDERED: NEOSTIGMINE METHYLSULFATE 1 MG/ML 10ML VIAL ONE (08:08)
[2019-04-28] MEDS ORDERED: FLOSEAL HEMOSTATIC MATRIX 10ML TOP ONE (08:17)
[2019-04-28] MEDS ORDERED: BACITRACIN INJ 50,000 UNIT VIAL IR ONE (08:18)
[2019-04-28] MEDS: BUPIVACAINE/EPINEPHRINE 0.5% MPF 1:200,000 10 ML VIAL INFIL PRN ×2 (08:24→09:40)
[2019-04-28] MEDS ORDERED: ONDANSETRON INJ 2 MG/ML 2 ML VIAL IV PRN ×2 (08:53→10:57)
[2019-04-28] MEDS ORDERED: ATROPINE SULFATE 0.1 MG/ML 10ML SYR IV PRN (08:53)
[2019-04-28] MEDS ORDERED: fentaNYL citrate 100 MCG/2 ML VIAL IV PRN (08:53)
[2019-04-28] MEDS ORDERED: HYDROmorphone INJ 2 MG/ML SYR/VIAL IV PRN (08:53)
[2019-04-28] MEDS ORDERED: ePHEDrine sulfate 50 MG/ML AMP IV PRN (08:53)
[2019-04-28] MEDS ORDERED: ePHEDrine sulfate 50 MG/ML SYR ONE (09:10)
--- NOTE | 2019-04-28 09:45 | Operative Report ---
Post Operative Report Pre & Post Diagnosis Operation Date: 04/28/19 07:45 Pre-Op Diagnosis: Lumbar stenosis with neurogenic claudication Post-Op Diagnosis: Lumbar stenosis with neurogenic claudication I identified the patient and participated in the time-out.: Yes Procedure Operation Date: 04/28/19 07:45 Actual Procedures #1 removal of posterior instrumentation L4-5. #2 expiration fusion L4-5. #3 lumbar decompression bilateral medial facetectomies and foraminotomies L2-3, L3- 4. #4 posterior spinal fusion L2-3 L3-4. #5 placement posterior instr umentation L2-3 L3-4 L4-5. #6 interbody fusion L2-3 and L3-4. #7 placed a peek cage 8 x 22 mm at L2-3 and 12 x 22 mm at L3-4. #8 placement of locally harvested morselized autograft in the posterior lateral gutters. #9 placement infuse collagen sponge plan master graft in the posterior lateral gutters and ostial amp and interbody space. Surgeon Aureliano Panchal DO Syrup Mixer Lynn Solano Estimated Blood Loss 200 Findings Consistent with Post-Op Diagnosis Specimens None Indications This is a 68-year-old female presents with above-mentioned diagnosis after failing extensive course of nonoperative care is here for surgical intervention. Description of Procedure Patient was met with identified informed consent obtained. Patient was then taken to the operative suite underwent ablation placed in the prone position the Silverio table on top of the Mike frame. All bony prominences well-padded eyes inspected to ensure no external pressure placed upon the. This point the lumbar spine was prepped and draped in normal sterile fashion. Sharp dissection with the assistance of Bovie cautery performed down to and exposing the lamina transverse processes of L2-L3 and instrumentation at L4 and L5 bilaterally. Then proceeded move the hardware bilaterally at L4 and L5 explored the fusion mass noting it to be intact. And then performed a complete laminectomy of L2-3 and L2 from a caudal cephalad fashion addressing severe lateral recess and foraminal disease bilaterally. Pedicle screws were then placed in L2 L3-L4-L5 bilateral with assistance of fluoroscopy the purposes silviano placed. By way of a trans-foraminal approach on the right complete discectomy of L3-4 was performed endplates curetted to subcortical bleeding bone and a 12 x 22 mm peek cage filled with osteo-bone graft tapped in position. Then proceeded L2-[address] of a trans-foraminal approach on the right a complete discectomy performed endplates curetted to subcortical bleeding bone and a 8 x 22 mm peek cage filled with osteo-bone graft tapped in position. The rods were then locked into final position bilaterally. The transverse processes of L to L3-L4 burred to subcortical bleeding bone. Infuse collagen sponge master graft local autograft placed in the posterior lateral gutters. 15 round SAMANTHA drain inserted. The incision was then closed with 1 Vicryl in the fascia 2-0 Vicryl subcutaneously and 4 Monocryl for final skin closure. Steri-Strip sterile dressing was placed. Patient will continue PACU stable addition. Please note Lynn Solano present at the entire procedure involved the patient positioning complex portions of the surgery and final skin closure. Lastly spinal cord monitoring was utilized with the procedure no changes noted. I attest to the content of the Intraoperative Record and any orders documented therein. Any exceptions are noted below.
--- NOTE | 2019-04-28 10:00 | Fluoroscopy Report ---
LUMBAR SPINE, INTRAOPERATIVE FLUOROSCOPY HISTORY: L2-L5 decompression fusion. FLUOROSCOPY TIME: 11 seconds. FINDINGS: Intraoperative fluoroscopy was provided for the lumbar spine. 2 fluoroscopic spot images we re obtained. Posterior decompression fusion from L2 through L5 with pedicle screws and rods. The hard chiu appears intact. IMPRESSION: Fluoroscopy provided for a L2-L5 posterior decompression and fusion. ACT 112: Negative or not required by law. Electronically signed by: Pj Mittal M.D. 04/28/2019 9:58 AM
--- NOTE | 2019-04-28 10:42 | Anesthesiology Progress Note ---
Date of Service April 28, 2019 Anesthesia Post Procedure Vital Signs Vital Signs: Temp Pulse Pulse Resp BP BP Pulse Ox 04/28/19 10:40 36.4 C L 85 14 104/55 L 97 04/28/19 10:25 76 13 110/50 L 97 04/28/19 10:15 82 18 106/56 L 96 04/28/19 10:05 85 18 111/49 L 96 04/28/19 09:59 36.2 C L 99 H 12 113/62 97 04/28/19 06:37 36.7 C 75 18 165/72 H 99 Pain Intensity Right Hip: Pain Intensity: 8 Transfer of Care Handoff Completed per policy Notes Mental Status: alert / awake / arousable and participated in evaluation Patient Amnestic to Procedure: Yes Nausea / Vomiting: adequately controlled Pain: adequately controlled Airway Patency, RR, SpO2: stable & adequate BP & HR: stable & adequate Hydration State: stable & adequate Anesthetic Complications: no major complications apparent and Pt Satisfied with anesthetic care
[2019-04-28] MEDS ORDERED: HYDROmorphone INJ 0.5 MG/0.5 ML SYR IV PRN (10:57)
[2019-04-28] MEDS ORDERED: FAMOTIDINE 20 MG TAB PO PRN (10:57)
[2019-04-28] MEDS ORDERED: METOCLOPRAMIDE HCL INJ 5 MG/ML 2 ML VIAL IV PRN (10:57)
[2019-04-28] MEDS ORDERED: TRAMADOL HCL 50 MG TABLET PO PRN (10:57)
[2019-04-28] MEDS ORDERED: HYDROmorphone INJ 1 MG/ML SYRINGE IV PRN (10:57)
[2019-04-28] MEDS ORDERED: DO NOT ADMINISTER FLU VACCINE PRN (10:57)
[2019-04-28] MEDS ORDERED: LORazepam 0.5 MG TAB PO PRN (10:57)
[2019-04-28] MEDS ORDERED: DO NOT ADMINISTER PNEUMOCOCCAL VACCINE PRN (10:57)
[2019-04-28] MEDS ORDERED: ACETAMINOPHEN 1,000 MG/100 ML VIAL IV PRN (10:57)
[2019-04-28] MEDS ORDERED: MAGNESIUM HYDROXIDE SUSP 30 ML UDC PO PRN (10:57)
[2019-04-28] MEDS ORDERED: NALOXONE HCL 0.4 MG/1 ML VIAL/CARP IV PRN (10:57)
[2019-04-28] MEDS ORDERED: bisacodyL 10 MG SUPP PR PRN (10:57)
[2019-04-28] MEDS ORDERED: SOD PHOSPHATE/SOD BIPHOSPHATE ENEMA 132 ML BTL PR PRN (10:57)
[2019-04-28] MEDS ORDERED: ONDANSETRON 4 MG OD TAB PO PRN (10:57)
[2019-04-28] MEDS ORDERED: OXYCODONE HCL IR 5 MG TAB (IMMEDIATE RELEASE) PO PRN (10:57)
[2019-04-28] MEDS ORDERED: LORazepam 0.5 MG/1 ML VIAL IV PRN (10:57)
[2019-04-28] MEDS ORDERED: PROMETHAZINE HCL 12.5 MG in SODIUM CHLORIDE 0.9% 50 ML IV PRN (10:57)
[2019-04-28] MEDS ORDERED: ALUMINUM/MAGNESIUM SUSP 30 ML UDC PO PRN (10:57)
[2019-04-28] MEDS: SODIUM CHLORIDE 0.9% 1000ML 1,000 ML IV SCH ×2 (12:17→23:06)
--- NOTE | 2019-04-28 14:00 | Internal Medicine Consult Note ---
Date of Consultation April 28, 2019 Assessment & Plan (1) Status post lumbar spine operative procedure for decompression of spinal cord: Status post pain L2-L4 decompression, L2-L5 fusion, interbody in insertion L2-L3, hardware removal L3-L4 and L4-L5 POD #0 Management will be as per Ortho We will monitor labs (2) CAD (coronary artery disease): History of [place] in 2001 status post RCA stent Remains stable without any acute symptoms (3) Diabetes: We will continue current medications Blood sugar AC at bedtime and coverage (4) HTN (hypertension): Blood pressure seems to be controlled (5) Hyperlipidemia: Continue statin (6) Osteoarthritis: (7) PVD (peripheral vascular disease): No acute arthritis in any joint pain DVT prophylaxis As per Orth CODE STATUS Full Thank you for this consultation [facility] hospitalist team will have follow-up the patient while in the hospital History of Present Illness Reason for Consultation: Medical management following back surgery Attending Physician: Aureliano Panchal, DO History of Present Illness She is 68-year-old female with significant past medical history of CAD status post inferior wall STEMI in 2001 with PCI to RCA, [id number] diabetes, hypertension, hyperlipidemia, osteoarthritis, peripheral vascular disease and spinal stenosis apparently underwent lumbar decompression and fusion by Dr. Panchal this morning for ongoing spinal stenosis with symptoms. She has had preop evaluation and her EKG chest x-ray and blood test were unremarkable. She denies any significant symptoms and complains of minimal pain involving the surgery site. Denies any radiation of pain, any numbness and/or tingling in the extremities. Allergies Allergy/AdvReac Type Severity Reaction Status Date / Time Penicillins Allergy Severe THROAT Verified 04/28/19 06:33 SWELLING-ANAPHYLACTIC adhesive Allergy Rash Verified 04/28/19 06:33 Milk Containing Products Allergy Rash Verified 04/28/19 06:33 Sulfa (Sulfonamide AdvReac Mild GI Verified 04/28/19 06:33 Antibiotics) UPSET-NAUSEA AND VOMITING Home Medications Home Medications Medication Instructions Recorded Confirmed Type acetaminophen [Tylenol] 325 mg PO QID PRN 03/30/19 04/28/19 History amlodipine 2.5 mg PO QAM 03/30/19 04/28/19 History atorvastatin 80 mg PO PM 03/30/19 04/28/19 History calcium carbonate-vitamin D3 2 cap PO BID 03/30/19 04/28/19 History [Calcium 600 + D(3)] glipizide 2.5 mg PO QAM 03/30/19 04/28/19 History metoprolol succinate 50 mg PO QPM 03/30/19 04/28/19 History multivitamin 1 tab PO PM 03/30/19 04/28/19 History triamterene-hydrochlorothiazid 1 tab PO QAM 03/30/19 04/28/19 History aspirin [Ecotrin] 325 mg PO DAILY 04/14/19 04/28/19 History Patient History Medical History CAD (coronary artery disease) CAD s/p inferior wall STEMI 2001 PCI to RCA 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 Clark/JOCELYNE Spinal stenosis Surgical History History of nagif-yhnpx-aedlovo bypass B/L LE (2005) History of cardiac cath 2002- stent x 1 History of colonoscopy History of lumbar fusion [facility] 2016 History of shoulder surgery Left History of tonsillectomy History of tooth extraction History of tubal ligation Family History Mother Family history of diabetes mellitus Other No family history of adverse response to anesthesia Social History Preferred Language: Armenian Communication Ability: Effective Securities Analyst Required: No Beliefs That Will Affect Care: None Current Living Situation: Spouse Other Information That Helps Us Care for You: No Feels Safe at Home: Yes Safety Concerns: Feels Safe At This Time Smoking Status: Current every day smoker Tobacco Type: cigarettes ; Cigarettes Per Day: 1/2 ppd x several years ; Do You Dip or Chew Tobacco: No ; Second Hand Exposure: Yes ( smokes) ; Tobacco Cessation Education Requested by Patient: No Hx Alcohol Use: No Hx Substance Use: No Review of Systems Review of Systems: All systems reviewed and are unremarkable except as noted below Musculoskeletal: + back pain (Minimal back pain without radiation) Physical Exam Physical Exam: Lying in bed without any acute symptoms Constitutional: well developed; no acute distress and not ill appearing Eyes: PERRL, conjunctivae normal, anicteric sclerae ENMT: external ear and nose normal, oropharynx normal Neck: trachea midline, no thyromegaly Respiratory: normal respiratory effort, lungs clear to auscultation Cardiovascular: Rate/Rhythm: regular rate and regular rhythm Gastrointestinal (Abdomen): Inspection/Auscultation: abdomen normal to inspection Percussion/Palpation: abdomen soft; abdomen nontender Musculoskeletal: No acute arthritis in any joints Neurologic: Alert, awake and oriented x3. Results & Data Vital Signs (Past 12 Hours) Vital Signs Temp Pulse Pulse Resp BP BP Pulse Ox 04/28/19 11:58 36.6 C 87 16 101/62 95 04/28/19 11:21 97 H 16 112/68 95 04/28/19 11:14 36.8 C 84 16 100/60 97 04/28/19 10:40 36.4 C L 85 14 104/55 L 97 04/28/19 10:25 76 13 110/50 L 97 04/28/19 10:15 82 18 106/56 L 96 04/28/19 10:05 85 18 111/49 L 96 04/28/19 09:59 36.2 C L 99 H 12 113/62 97 04/28/19 06:37 36.7 C 75 18 165/72 H 99 Medications Administered Current Inpatient Medications Acetaminophen (Tylenol) 1,000 mg PO PREOP ARCHANA Stop: 04/28/19 18:00 Last Admin: 04/28/19 11:35 Dose: Not Given Documented by: Acetaminophen (Tylenol) 1,000 mg PO Q8H PRN PRN Reason: MILD Pain Scale 1,2,3 & Pre PT Stop: 05/28/19 10:56 Al Hydrox/Mg Hydrox/Simethicone (Maalox) 30 ml PO Q6H PRN PRN Reason: Dyspepsia Stop: 05/28/19 10:56 Amlodipine Besylate (Norvasc) 2.5 mg PO QAM ARCHANA Stop: 05/29/19 08:59 Aspirin (Ecotrin) 325 mg PO DAILY ARCHANA Stop: 05/29/19 08:59 Atorvastatin Calcium (Lipitor) 80 mg PO PM ARCHANA Stop: 05/28/19 20:59 Bisacodyl (Dulcolax) 10 mg AK DAILY PRN PRN Reason: Constipation Stop: 05/28/19 10:56 Bupivacaine HCl/Epinephrine Bitart (Sensorcaine/Epinephrine 0.5% Mpf 1:200,000) 25 ml INFIL ONCE PRN PRN Reason: Pain Stop: 05/28/19 08:22 Last Admin: 04/28/19 08:24 Dose: 25 ml Documented by: Celecoxib (Celebrex) 200 mg PO PREOP ARCHANA Stop: 04/28/19 18:00 Last Admin: 04/28/19 11:34 Dose: Not Given Documented by: Diphenhydramine HCl (Benadryl Capsule) 25 mg PO Q6H PRN PRN Reason: Allergic Rhinitis/Insomnia Stop: 05/28/19 10:56 Famotidine (Pepcid) 20 mg PO Q12H PRN PRN Reason: Dyspepsia Stop: 05/28/19 10:56 Gabapentin (Neurontin) 300 mg PO PREOP ARCHANA Stop: 04/28/19 18:00 Last Admin: 04/28/19 11:35 Dose: Not Given Documented by: Glipizide (Glucotrol Extended Rel) 2.5 mg PO QDB ARCHANA Stop: 05/29/19 07:29 Hydromorphone HCl (Dilaudid) 0.5 mg IV Q3H PRN PRN Reason: MOD pain (scale 4-6) & Pre PT Stop: 05/12/19 10:56 Hydromorphone HCl (Dilaudid) 1 mg IV Q3H PRN PRN Reason: severe pain (scale 7-10) Stop: 05/12/19 10:56 Hydroxyzine HCl (Vistaril) 25 mg PO Q8H PRN PRN Reason: Anxiety Stop: 05/28/19 10:56 Lactated Ringer's (Lr) 1,000 mls @ 15 mls/hr IV .Q24H ARCHANA Stop: 04/29/19 05:59 Last Infusion: 04/28/19 07:47 Dose: Infused Documented by: Clindamycin Phosphate (Cleocin) 600 mg in 54 mls @ 100 mls/hr IV PREOP ARCHANA Stop: 04/29/19 05:59 Last Infusion: 04/28/19 11:10 Dose: Infused Documented by: Promethazine HCl 12.5 mg/ (Sodium Chloride) 50.5 mls @ 204 mls/hr IV Q6H PRN PRN Reason: Nausea &/or Vomiting Stop: 05/28/19 10:56 Lorazepam (Ativan) 0.5 mg in 1 mls @ 0.5 mls/min IV Q8H PRN PRN Reason: Sedation/Anxiety Stop: 05/28/19 10:56 Sodium Chloride (Nss 1000ml) 1,000 mls @ 100 mls/hr IV .Q10H ARCHANA Stop: 05/28/19 11:14 Last Admin: 04/28/19 12:17 Dose: 100 mls/hr Documented by: Acetaminophen (Ofirmev) 1,000 mg in 100 mls @ 400 mls/hr IV Q8H PRN PRN Reason: MILD Pain Rating 1,2,3 Stop: 04/29/19 10:56 Clindamycin Phosphate 600 mg/ (Dextrose) 54 mls @ 100 mls/hr IV Q8H ARCHANA Stop: 04/29/19 00:33 Influenza Virus Vaccine Quadrival (Flu Vaccine, Do Not Administer) 1 ea N/A PRN PRN PRN Reason: Notification Stop: 05/28/19 10:56 Lorazepam (Ativan) 0.5 mg PO Q8H PRN PRN Reason: Sedation/Anxiety Stop: 05/28/19 10:56 Magnesium Hydroxide (Milk Of Magnesia) 30 ml PO DAILY PRN PRN Reason: Constipation Stop: 05/28/19 10:56 Metoclopramide HCl (Reglan) 10 mg IV Q6H PRN PRN Reason: Nausea &/or Vomiting Stop: 05/28/19 10:56 Metoprolol Succinate (Toprol Xl) 50 mg PO QPM ARCHANA Stop: 05/28/19 20:59 Multivitamins (Multivitamin Tab) 1 tab PO PM ARCHANA Stop: 05/28/19 20:59 Multivitamins/Minerals (Caltrate Plus) 1 tab PO BIDM ARCHANA Stop: 05/28/19 16:59 Naloxone HCl (Narcan) 0.1 mg IV Q5M PRN; Protocol PRN Reason: Oversedation/Resp Depression Stop: 05/28/19 10:56 Ondansetron HCl (Zofran) 4 mg IV Q6H PRN PRN Reason: Nausea &/or Vomiting Stop: 05/28/19 10:56 Ondansetron HCl (Zofran Odt) 4 mg PO Q6H PRN PRN Reason: Nausea Stop: 05/28/19 10:56 Oxycodone HCl (Roxicodone Immediate Rel) 5 - 10 mg PO Q4H PRN PRN Reason: Moderate-Severe Pain & Pre PT Stop: 05/12/19 10:56 Pneumococcal Polyvalent Vaccine (Pneumococcal Vacc, Do Not Administer) 1 ea N/A PRN PRN PRN Reason: Notification Stop: 05/28/19 10:56 Polyethylene Glycol (Miralax Powder Packet) 17 gm PO Q6 ARCHANA Stop: 05/29/19 05:59 Senna/Docusate Sodium (Senokot S) 2 tab PO HS ARCHANA Stop: 05/28/19 20:59 Sodium Biphosphate/Sodium Phosphate (Fleet Enema) 132 ml AK ONE PRN PRN Reason: Constipation Stop: 05/28/19 10:56 Tramadol HCl (Ultram) 50 - 100 mg PO Q4H PRN PRN Reason: Moderate-Severe Pain & Pre PT Stop: 05/28/19 10:56 Triamterene/HCTZ (Maxzide 37.5/25mg) 1 tab PO QAM ARCHANA Stop: 05/29/19 08:59
[2019-04-28] MEDS ORDERED: GLUCOSE 10 TABS/TUBE PO PRN (14:15)
[2019-04-28] MEDS ORDERED: DEXTROSE 50% 50 ML SYRINGE IV PRN (14:15)
[2019-04-28] MEDS ORDERED: GLUCAGON FOR INJ 1 MG VIAL IM PRN (14:15)
[2019-04-28] MEDS ORDERED: GLUCOSE 40% GEL 15 GM TUBE PO PRN (14:15)
[2019-04-28] MEDS ORDERED: CARBOHYDRATES FOR HYPOGLYCEMIA PO PRN (14:15)
[2019-04-28] MEDS: CLINDAMYCIN 600 MG in DEXTROSE 5% 50 ML IV SCH ×2 (16:50→23:59)
[2019-04-28] MEDS: CALCIUM 600MG + VIT D 400 IU TAB PO SCH (16:54)
[2019-04-28] MEDS: INSULIN ASPART 100 UNITS/ML 3 ML PEN SC SCH ×2 (18:18→21:56)
[2019-04-28] MEDS: DOCUSATE SODIUM/SENNA 50/8.6MG TAB PO SCH (21:53)
[2019-04-28] MEDS: METOPROLOL SUCC 50MG EXT REL TAB PO SCH (21:53)
[2019-04-28] MEDS: MULTIVITAMIN TAB PO SCH (21:53)
[2019-04-28] MEDS: ATORVASTATIN 40 MG TAB PO SCH (21:53)
[2019-04-29] MEDS: POLYETHYLENE (MIRALAX) 17 GM PACK PO SCH ×3 (05:49→17:37)
[2019-04-29 07:01] LABS: Basophils # (auto) 0.01 K/uL (0-0.2); Basophils % (auto) 0.1 %; Eosinophils # (auto) 0.01 K/uL (0-0.5); Eosinophils % (auto) 0.1 %; Hematocrit (blood only) 33.8 % (37-47); Hemoglobin 11.4 g/dL (12.0-16.0); Immature Granulocytes # (auto) 0.07 K/uL (0.00-0.02); Immature Granulocytes % (auto) 0.4 %; Lymphocytes # (auto) 1.57 K/uL (1.2-3.4); Lymphocytes % (auto) 8.3 %; Mean Corpuscular Hemoglobin 32.2 pg (25-34); Mean Corpuscular Hgb Conc 33.7 g/dL (32-36); Mean Corpuscular Volume 95.5 fL (80-100); Mean Platelet Volume 10.8 fL (7.4-10.4); Monocytes % (auto) 6.3 %; Neutrophils # (auto) 16.08 K/uL (1.4-6.5); Neutrophils % (auto) 84.8 %; Platelet Count 186 K/uL (130-400); RDW Coefficient of Variation 13.8 % (11.5-14.5); RDW Standard Deviation 48.1 fL (36.4-46.3); Red Blood Count 3.54 M/uL (4.2-5.4); White Blood Count 18.94 K/uL (4.8-10.8)
[2019-04-29] MEDS ORDERED: glipiZIDE ER 2.5 MG TABCR PO SCH (07:30)
[2019-04-29 07:31] LABS: BUN Creatinine Ratio 12.4 (10-20); Calcium 9.8 mg/dl (8.5-10.1); Creatinine Clr Calc Pharmacy 63.4 ml/min; Est GFR (African American) 84.6; Potassium 3.4 mmol/L (3.5-5.1)
[2019-04-29 08:00] LABS: Estimated Average Glucose 154 mg/dl
[2019-04-29] MEDS: SODIUM CHLORIDE 0.9% 1000ML 1,000 ML IV SCH (08:09)
[2019-04-29] MEDS: TRIAMTERENE/HCTZ 37.5/25MG TAB PO SCH (08:10)
[2019-04-29] MEDS: ASPIRIN 325 MG ECTAB PO SCH (08:10)
[2019-04-29] MEDS: AMLODIPINE BESYLATE 5 MG TAB PO SCH (08:10)
[2019-04-29] MEDS: CALCIUM 600MG + VIT D 400 IU TAB PO SCH ×2 (08:11→17:37)
--- NOTE | 2019-04-29 08:12 | Anesthesiology Progress Note ---
Date of Service April 29, 2019 Anesthesia Post Procedure Vital Signs Vital Signs: Temp Pulse Pulse Resp BP Pulse Ox 04/29/19 07:52 36.6 C 90 18 111/67 95 04/29/19 02:40 36.7 C 74 18 100/62 94 04/28/19 23:12 36.5 C 68 18 114/68 95 04/28/19 21:51 69 106/64 04/28/19 18:57 36.7 C 74 17 107/65 94 04/28/19 14:23 36.6 C 77 16 103/60 93 04/28/19 13:50 36.6 C 89 16 106/65 95 04/28/19 12:50 36.5 C 87 16 110/71 96 04/28/19 11:58 36.6 C 87 16 101/62 95 04/28/19 11:21 97 H 16 112/68 95 04/28/19 11:14 36.8 C 84 16 100/60 97 04/28/19 10:40 36.4 C L 85 14 104/55 L 97 04/28/19 10:25 76 13 110/50 L 97 04/28/19 10:15 82 18 106/56 L 96 04/28/19 10:05 85 18 111/49 L 96 04/28/19 09:59 36.2 C L 99 H 12 113/62 97 Pain Intensity Right Hip: Pain Intensity: 6 Notes Mental Status: alert / awake / arousable Patient Amnestic to Procedure: Yes Nausea / Vomiting: adequately controlled Pain: adequately controlled Airway Patency, RR, SpO2: stable & adequate BP & HR: stable & adequate Hydration State: stable & adequate Anesthetic Complications: no major complications apparent and Pt Satisfied with anesthetic care
[2019-04-29] MEDS: INSULIN ASPART 100 UNITS/ML 3 ML PEN SC SCH ×4 (09:15→20:46)
[2019-04-29] MEDS ORDERED: ALBUT/IPRATROP 3MG/0.5MG NEB 3 ML VIAL NEB PRN (11:11)
--- NOTE | 2019-04-29 11:11 | Hospitalist Progress Note ---
Date of Service April 29, 2019 Assessment & Plan (1) Status post lumbar spine operative procedure for decompression of spinal cord: - POD#1 L2-L4 decompression, L2-L5 fusion, interbody in insertion L2-L3, hardware removal L3-L4 and L4-L5 - activity and wound care orders as per ortho - pain control with bowel regimen - PT/OT - monitor H/H for acute blood loss anemia and transfuse blood products PRN - EBL 200 cc, SAMANTHA drain output 250 cc to date (2) Acute blood loss as cause of postoperative anemia: -Preop Hgb 14.6 -> 11.4 -Stable, no need for PRBC transfusion at this time (3) Leukocytosis: -Likely due to intraoperative steroids and stress response from recent surgery -No obvious signs of infection at this time -Monitor CBC (4) Hypokalemia: -K+ 3.4 -Replace, check Mg+ (5) CAD (coronary artery disease): -History of [place] in 2001 status post RCA stent -Appears stable, no reports of chest pain -Continue aspirin (okay with Ortho), statin, beta-francoise (6) Diabetes: -Hgb A1c 7.0 -Hold oral agents and utilize NovoLog per protocol while hospitalized -Blood sugars controlled (7) HTN (hypertension): -BP controlled, continue metoprolol and triamterene/HCTZ (8) PVD (peripheral vascular disease): -Continue statin (9) DVT prophylaxis: -Teds/SCDs as per spine orthopedics Admission and Anticipated Discharge Date Admission Date: April 28, 2019 Supervising Physician Co-Signing Physician Notes I have seen and examined the patient and have discussed the case with the provider above. I agree with the assessment and plan as stated. 68 yo patient s/p back surgery. She is ambulating, denies pain , denies SOB or other issues. Tolerating PO. My exam is similar to above except her lungs were clear on my assessment. Cont plan as stated above. Bob, DO Subjective Patient seen and examined. Resting in bed, offers no complaints. Pain is well controlled with current pain medication regimen. Has an occasional, dry, nonproductive cough. Chronic per patient Denies chest pain shortness of breath. No lightheadedness or dizziness. Urinating and having bowel movement without difficulty. Denies abdominal pain or nausea. Review of Systems Review of Systems: All systems reviewed & are unremarkable except as noted in Subjective Physical Exam Constitutional: no acute distress Resting in bed Respiratory: normal respiratory effort; no respiratory distress Auscultation: + diminished lung sounds and + wheezes (Few, scattered, end expiratory) Cardiovascular: Rate/Rhythm: regular rate and regular rhythm Vessels: normal peripheral pulses Extremities: no edema Musculoskeletal: S/p back surgery, dressing dry intact, pedal pushes and pulls strong bilaterally, drain in place draining serosanguineous drainage Psychiatric: Orientation: alert and oriented x 3 Results & Data ([facility]) Vital Signs (Past 12 Hours) Vital Signs Temp Pulse Resp BP Pulse Ox 04/29/19 07:52 36.6 C 90 18 111/67 95 04/29/19 02:40 36.7 C 74 18 100/62 94 04/28/19 23:12 36.5 C 68 18 114/68 95 Laboratory Results Short CBC 04/29/19 Range/Units 06:24 WBC 18.94 H (4.8-10.8) K/uL Hgb 11.4 L (12.0-16.0) g/dL Hct 33.8 L (37-47) % Plt Count 186 (130-400) K/uL BMP 04/29/19 06:24 Sodium 138 Potassium 3.4 L Chloride 104 Carbon Dioxide 26 BUN 10 Creatinine 0.83 Glucose 136 H Calcium 9.8
[2019-04-29] MEDS: ACETAMINOPHEN 500 MG TAB PO PRN (11:41)
[2019-04-29] MEDS ORDERED: POTASSIUM CHLORIDE 20 MEQ TABCR PO ONE (11:45)
--- NOTE | 2019-04-29 14:00 | Orthopedic Progress Note ---
Date of Service April 29, 2019 Assessment & Plan (1) Status post lumbar spine operative procedure for decompression of spinal cord: This time we will continue physical therapy monitor her SAMANTHA operatively discharge home in the next few days. Present on Admission?: Yes Admission and Anticipated Discharge Date Admission Date: April 28, 2019 Subjective Back pain controlled leg symptoms improved. Physical Exam Physical Exam: Patient is good strength testing appears comfortable. Results & Data ([facility]) Vital Signs (Past 12 Hours) Vital Signs Temp Pulse Resp BP Pulse Ox 04/29/19 07:52 36.6 C 90 18 111/67 95 04/29/19 02:40 36.7 C 74 18 100/62 94
[2019-04-29] MEDS: MAGNESIUM SULFATE / D5W 1 GM/100 ML BAG IV SCH ×2 (17:00→18:19)
[2019-04-29] MEDS: ATORVASTATIN 40 MG TAB PO SCH (20:17)
[2019-04-29] MEDS: MULTIVITAMIN TAB PO SCH (20:18)
[2019-04-29] MEDS: METOPROLOL SUCC 50MG EXT REL TAB PO SCH (20:18)
[2019-04-29] MEDS: DOCUSATE SODIUM/SENNA 50/8.6MG TAB PO SCH (20:18)
[2019-04-29 23:17] VITALS: O2SAT 92
[2019-04-30 05:05] LABS: Hematocrit (blood only) 31.6 % (37-47); Hemoglobin 10.4 g/dL (12.0-16.0); Mean Corpuscular Hemoglobin 31.2 pg (25-34); Mean Corpuscular Hgb Conc 32.9 g/dL (32-36); Mean Corpuscular Volume 94.9 fL (80-100); Mean Platelet Volume 10.8 fL (7.4-10.4); Platelet Count 150 K/uL (130-400); RDW Coefficient of Variation 13.9 % (11.5-14.5); RDW Standard Deviation 48.3 fL (36.4-46.3); Red Blood Count 3.33 M/uL (4.2-5.4); White Blood Count 11.84 K/uL (4.8-10.8)
[2019-04-30 05:41] LABS: BUN Creatinine Ratio 15.7 (10-20); Calcium 8.6 mg/dl (8.5-10.1); Creatinine Clr Calc Pharmacy 84.8 ml/min; Est GFR (African American) 108.1; Est GFR (Non-African American) 93.3; Potassium 3.2 mmol/L (3.5-5.1)
[2019-04-30 06:37] VITALS: BP 118/70; PULSE 102; TEMP 98.6
[2019-04-30] MEDS: INSULIN ASPART 100 UNITS/ML 3 ML PEN SC SCH ×2 (07:59→12:44)
[2019-04-30] MEDS: ACETAMINOPHEN 500 MG TAB PO PRN (08:03)
[2019-04-30] MEDS: ASPIRIN 325 MG ECTAB PO SCH (08:04)
[2019-04-30] MEDS: TRIAMTERENE/HCTZ 37.5/25MG TAB PO SCH (08:04)
[2019-04-30] MEDS: AMLODIPINE BESYLATE 5 MG TAB PO SCH (08:04)
[2019-04-30] MEDS: CALCIUM 600MG + VIT D 400 IU TAB PO SCH (08:04)
--- NOTE | 2019-04-30 08:38 | Hospitalist Progress Note ---
Date of Service April 30, 2019 Assessment & Plan (1) Status post lumbar spine operative procedure for decompression of spinal cord: - POD#2 L2-L4 decompression, L2-L5 fusion, interbody in insertion L2-L3, hardware removal L3-L4 and L4-L5 Resume Post Op Care per Surgery Protocol Incentive Spirometry 10x per Hour Resume Relative Home Meds Where Appropriate PT/OT with appropriate fall precautions Transition from IV to PO Pain control DVT Prophylaxis Per Surgery Protocol Monitor Daily Labs (2) Acute blood loss as cause of postoperative anemia: -Preop Hgb 14.6 -> 10.4 -Stable, no need for PRBC transfusion at this time (3) Leukocytosis: -Likely due to intraoperative steroids and stress response from recent surgery -No obvious signs of infection at this time -Monitor CBC (4) Hypokalemia: Add K (5) CAD (coronary artery disease): -History of [place] in 2001 status post RCA stent -Appears stable, no reports of chest pain -Continue aspirin (okay with Ortho), statin, beta-francoise (6) Diabetes: -Blood sugars controlled (7) HTN (hypertension): -BP controlled, continue metoprolol and triamterene/HCTZ (8) PVD (peripheral vascular disease): -Continue statin (9) DVT prophylaxis: -Teds/SCDs as per spine orthopedics Labs checked Replete K ROS-No Headache, No Visual Changes, No Nausea, No Vomiting, No Fever, No Chills, No Neck Pain or Stiffness, No Chest Pain, No Palpitations, No SOB, No MORALES, No Cough, No Sputum, No Wheezing, No Abdominal Pain, No Diarrhea, No Hematemesis, No Hemoptysis, No Unexpected Weight Loss, No Flank pain, No Melena, No Hematochezia, No Frequency, No Urgency, No Burning, No Hematuria, No Rashes, No Diaphoresis. Appetite is Normal, Sore Back Physical Exam Gen-AAO x 3, NAD, Afebrile, Drain still in place Head-NCAT, EOMI, PERRLA, Anicteric Sclera, No Posterior Pharyngeal Erythema Neck-Supple, No JVD, No Thyromegaly, No Masses, No LAD, No Bruits Lungs-Clear to Auscultation Bilaterally, No Rales, No Rhonchi, No Wheezing, No Crepitus Chest-No S4, +S1, +S2, No S3, No Murmurs, No Rubs, No Gallops, No Ectopy Abdomen-Soft, Bowel Sounds Present, Non Tender, Non Distended, No Hepatomegaly, No Splenomegaly, No Palpable Masses, No Rebound, No Rigidity, No Guarding Musculoskeletal-Full Range of Motion Bilaterally, No CVAT Extremities-No Cyanosis, No Clubbing, No Edema Nuero-Cranial Nerves II-XII grossly intact, Motor WNL, DTRs WNL, Strength WNL, Non Focal Psych-Normal Mood Admission and Anticipated Discharge Date Admission Date: April 28, 2019 Results & Data ([facility]) Vital Signs (Past 12 Hours) Vital Signs Temp Pulse Resp BP BP Pulse Ox 04/30/19 06:35 37.0 C 102 H 16 118/70 92 04/29/19 23:17 37.2 C 63 16 122/73 92
[2019-04-30] MEDS: POTASSIUM CHLORIDE / WTR 10 MEQ/100 ML PLCT IV SCH ×2 (10:00→11:00)
--- NOTE | 2019-04-30 10:31 | Discharge Summary ---
Date of Service April 30, 2019 Admission HPI Per Admitting Provider This is a 68-year-old female well-known to us that presents with worsening back and bilateral leg pain. After failing extensive course of nonoperative care is here for surgical invention. Principal Diagnosis Lumbar spinal stenosis with neurogenic claudication Discharge Data Allergies Allergy/AdvReac Type Severity Reaction Status Date / Time Penicillins Allergy Severe THROAT Verified 04/28/19 06:33 SWELLING-ANAPHYLACTIC adhesive Allergy Rash Verified 04/28/19 06:33 Milk Containing Products Allergy Rash Verified 04/28/19 06:33 Sulfa (Sulfonamide AdvReac Mild GI Verified 04/28/19 06:33 Antibiotics) UPSET-NAUSEA AND VOMITING Consultations 04/28/19 10:57 Consult Case Management - Discharge Planning Routine Consult Hospitalist Routine Procedures Performed Operation Date: 04/28/19 07:45 Actual Procedures p L2-L4 Decompression, L2-L5 Fusion, Interbody Insertion L2-L3, Spinal Cord Jane toring(Not Applicable) - Aureliano Panchal DO s Hardware Removal L3-L4, L4-L5(Not Applicable) - Aureliano Panchal DO Ordered Studies 04/28/19 07:45 FL fluoroscopy <1hr Routine FL lumbar spine 2-3V Routine Hospital Course (1) Lumbar stenosis with neurogenic claudication: Patient underwent lumbar decompression fusion tolerated well was taken orthopedic for postoperative. Postoperatively she was up and ambulating SAMANTHA drain decreasing appropriately. On her last day she had excellent strength testing was comfortable and subsequent discharge home. Discharge orders and instructions from the chart for further review. Total Time Total Time Spent Total Time Spent (In Minutes): 20 minutes Discharge Plan Discharge Items Patient Disposition: Home - Self-Care Reason For Visit: LUMBAR SPINAL STENOSIS WO NEUROGENIC CLAUDICATION Discharge Diagnosis: Lumbar spinal stenosis with neurogenic claudication Activity: As commented below Non-emergency contact: Primary Care Provider Call non-emergency contact if: you have any medication questions Follow-up/Referrals: Franco Lopez PA-C [Primary Care Provider] - Diet: Regular Addtl Attending Provider Instructions: ACTIVITY RECOMMENDATIONS: SELF CARE INSTRUCTIONS AFTER THORACIC/LUMBAR FUSIONS 1. You may walk to your tolerance. It is good exercise for your legs and back. Expect some back and intermittent leg aches and pains. 2. You may perform "counter-top" level activities (make a sandwich, garrett with a project, etc.). 3. No bending or lifting of more than 10 pounds or back twisting of any nature (roll like a log when turning in bed). 4. You may ride in a car for 20-30 minutes at a time. No driving until after your first visit with your doctor. 5. Frequent changes of position and restricting sitting to 30 minutes at a time will help limit the amount of back spasms and stiffness you may experience. 6. You may discontinue the use of ambulatory aids (cane, crutches, etc.) once your strength and confidence allow. 7. You may red hat engineer the shower and let water strike your incision when you arrive home at least once daily. Do not take a tub bath, sit in a hot tub or go into a swimming pool until after your first recheck in the office. SPECIAL CARE INSTRUCTIONS: VERY IMPORTANT TO READ AND REVIEW A. Your surgical incision has been closed with a cosmetic suture under the skin that will dissolve in about 6 weeks. In 14 days, you can use a pair of clean scissors and cut the suture that is left outside of the skin at the ends of your incision. 1. The small skin tapes can be removed 7 days after surgery if they have not fallen off by that point. 2. You may keep the wound open to air as much as possible to promote healing after post-op day number 5 unless told otherwise by your doctor. 3. If you think the wound looks like it is becoming infected (redness or worsening drainage) and/or you are experiencing fever, chill or worsening back pain and muscle spasms, contact the office so that we may evaluate you as soon as possible. B. Complications are uncommon, but please contact us if you have any signs or symptoms of: 1. wound infection (fever higher than 102.5 degrees F, redness, separation of wound, drainage, or increasing pain from the incision) 2. blood clots in legs (pain, swelling, redness and warmth in legs) 3. urinary tract infection (fever higher than 102.5 degrees F, burning upon urination or increased frequency of urination) 4. nerve problems (inability to walk on your toes or heels, numbness, loss of bowel or bladder control) 5. any other symptoms that concern you C. Please call the office at if you have any concerns or questions about your operation or recovery. D. No smoking! Smoking drastically decreases the chance of a solid fusion. E. Do not take any anti-inflammatory medications (Indocin, Advil, Motrin, Aspirin, Naprosyn, etc.) as these may inhibit the chance of a solid fusion. Tylenol is okay to take for pain. MANAGING PAIN AFTER SPINAL SURGERY 1. Narcotic medication is intended for short-term use and will be provided for surgical pain. Surgical pain usually lasts for a period of 4-6 weeks. Narcotic medication includes Percocet, Vicodin, Darvocet, Tylenol #3 or Lortab. 2. Longer-term pain is more appropriately treated with non-narcotic medication such as Tylenol ES. 3. Muscle spasm is not appropriately treated with narcotics. Muscle relaxers such as Soma, Flexeril or Skelaxin can be used along with Tylenol ES. 4. Remember that we all live with some "aches and pains". This is not unusual or uncommon after an injury or as we get older. a. Back pain is expected and may include muscle spasms for 4 to 6 weeks after surgery. The pain should gradually improve. If the pain worsens for no apparent reason, please contact the office. b. Intermittent leg pain may also be experienced and should not be concerned about unless it worsens for no apparent reason. If so, please contact the office. 5. We will provide appropriate medication within the normal guidelines of their prescribed use. We will also be very cautious and aware of potential abuse and extended duration of patients' medication needs. a. Pain medications are for your comfort and to assist with sleep and rest so that the tissue can heal. They are not provided in order to return to normal activity and should not be used through the day. To do so or worsening pain at night can result from ongoing tissue damage and development of tolerance to the prescribed medicine. 6. Please allow 2-3 days to process refills. Prescriptions will not be mailed but must be picked up at the office. FOLLOW UP VISIT: Keep your scheduled follow-up appointment. Any questions, please call the office at . Pending Studies at Discharge: No Stand-Alone Forms: [employer], Smoking Cessation Medications and DC Order Prescriptions: New tramadol 50 mg tablet 50 mg PO Q6H PRN (Reason: pain, moderate) Qty: 20 RF: 0 oxycodone 5 mg tablet 5 mg PO Q6H PRN (Reason: pain, severe) Qty: 20 RF: 0 Continued multivitamin Tablet 1 tab PO PM RF: 0 atorvastatin 80 mg Tablet 80 mg PO PM RF: 0 acetaminophen [Tylenol] 325 mg Tablet 325 mg PO QID PRN (Reason: Pain) RF: 0 amlodipine 2.5 mg Tablet 2.5 mg PO QAM RF: 0 glipizide 2.5 mg Tablet Extended Release 24hr 2.5 mg PO QAM RF: 0 triamterene-hydrochlorothiazid 37.5-25 mg Tablet 1 tab PO QAM RF: 0 Calcium 600 + D(3) 600 mg calcium- 200 unit Capsule 2 cap PO BID RF: 0 metoprolol succinate 50 mg Capsule,Sprinkle,Er 24hr 50 mg PO QPM RF: 0 aspirin [Ecotrin] 325 mg Tablet,Delayed Release (Dr/Ec) 325 mg PO DAILY RF: 0 Discharge Orders: Discharge Order (Routine); Ordered 04/30/19 Ordered By: Aureliano Panchal Admission Data Admit Date/Time: 04/28/19 10:01 Attending Provider: Aureliano Panchal Admit Provider: Aureliano Panchal Primary Care Provider: Franco Lopez Other Providers: Maximino Valverde
== END 2019-04-30 13:22 | disposition home or self-care (01) | DRG 454 ==
LOC: ASU 05:40 → 3E 10:01
DX: D72.829 Elevated white blood cell count, unspecified; I10 Essential (primary) hypertension; E78.5 Hyperlipidemia, unspecified; D62 Acute posthemorrhagic anemia; Z88.2 Allergy status to sulfonamides; Z88.0 Allergy status to penicillin; M81.0 Age-related osteoporosis without current pathological fracture; Z91.011 Allergy to milk products; E87.6 Hypokalemia; Z79.82 Long term (current) use of aspirin; Z79.899 Other long term (current) drug therapy; M48.062 Spinal stenosis, lumbar region with neurogenic claudication; I25.2 Old myocardial infarction; Z79.84 Long term (current) use of oral hypoglycemic drugs; F17.210 Nicotine dependence, cigarettes, uncomplicated; M19.90 Unspecified osteoarthritis, unspecified site; Z98.1 Arthrodesis status; Z91.048 Other nonmedicinal substance allergy status; I25.10 Atherosclerotic heart disease of native coronary artery without angina pectoris; T38.0X5A Adverse effect of glucocorticoids and synthetic analogues, initial encounter; E11.51 Type 2 diabetes mellitus with diabetic peripheral angiopathy without gangrene; Z95.5 Presence of coronary angioplasty implant and graft

== ENCOUNTER 2024-10-13 07:56 | Inpatient (IN) ==
--- NOTE | 2024-09-07 09:36 | PAT Medication Instructions ---
Medication Instructions Date of Service September 07, 2024 Home Medications Medication Instructions Recorded oxycodone 5 mg tablet 5 mg PO Q6H PRN pain, severe #20 04/29/19 tabs acetaminophen 325 mg tablet (Tylenol) 325 mg PO QID PRN amlodipine 2.5 mg tablet 2.5 mg PO QAM atorvastatin 80 mg tablet 80 mg PO PM calcium 600 mg (as carbonate)-vitamin D3 5 mcg (200 unit) capsule (Calcium 600 + D(3)) 2 cap PO BID glipizide 2.5 mg tablet, extended release 24 hr 2.5 mg PO BID metoprolol succinate 50 mg capsule sprinkle, ext. release 24 hr 50 mg PO QPM multivitamin 1 tab PO PM triamterene 37.5 mg-hydrochlorothiazide 25 mg tablet 1 tab PO QAM oxycodone 5 mg tablet 5 mg PO Q6H PRN aspirin 81 mg tablet,delayed release (Ecotrin Low Strength) 81 mg PO DAILY ASK your prescriber and surgeon aspirin 81 mg tablet,delayed release (Ecotrin Low Strength) 81 mg PO DAILY DO NOT take the morning of surgery calcium 600 mg (as carbonate)-vitamin D3 5 mcg (200 unit) capsule (Calcium 600 + D(3)) 2 cap PO BID glipizide 2.5 mg tablet, extended release 24 hr 2.5 mg PO BID triamterene 37.5 mg-hydrochlorothiazide 25 mg tablet 1 tab PO QAM Take morning of surgery With a small sip of water, OTHERWISE NOTHING TO EAT OR DRINK AFTER MIDNIGHT: acetaminophen 325 mg tablet (Tylenol) 325 mg PO QID PRN(if needed) amlodipine 2.5 mg tablet 2.5 mg PO QAM oxycodone 5 mg tablet 5 mg PO Q6H PRN(if needed) Take evening before surgery acetaminophen 325 mg tablet (Tylenol) 325 mg PO QID PRN(if needed) atorvastatin 80 mg tablet 80 mg PO PM calcium 600 mg (as carbonate)-vitamin D3 5 mcg (200 unit) capsule (Calcium 600 + D(3)) 2 cap PO BID glipizide 2.5 mg tablet, extended release 24 hr 2.5 mg PO BID metoprolol succinate 50 mg capsule sprinkle, ext. release 24 hr 50 mg PO QPM multivitamin 1 tab PO PM oxycodone 5 mg tablet 5 mg PO Q6H PRN(if needed) Other Notes If you have any questions please call us at [phone] or [phone] or [phone] or [phone]
--- NOTE | 2024-09-14 14:07 | Anesthesiology Consultation ---
Date of Service September 14, 2024 Assessment & Plan (1) Encounter for pre-operative examination: Chart Review Chart Review: Acceptable Risk for Surgery (pending surgeon ordered PCP and cardio clearance, review of vascular note 09/23/24 and review of vascular studies scheduled 09/15/24) and Patient seen in Pre Admission Testing - Awaiting PCP clearance appt 09/17/24 ([facility] Anna ELIAS) - Awaiting [facility] vacular appt (Dr. Graham) 09/23/24; please also obtain vascular studies being done 09/15/24 at [facility] - Awaiting cardio clearance ([facility] Cardio- Cherelle Mittal PA-C) 10/01/24 Per patient- avoid left arm due to left subclavian artery stenosis - Check BSG AM DOS Per PAT appt on 09/14/24, no recent illness/disease exposures, illness related symptoms, or recent illness/disease positive tests. Will leave to surgeon's discretion if preop Covid testing needed L2-4 decompression; L2-5 fusion; L4-5 hardware removal 04/28/2019 = done under [place] with grade 1 view with Reyes #2. ETT #7.5. Atraumatic DL x 1. Teaching & Discussion Pre-Anesthesia Teaching/Discussion Notes: Instructed NPO after midnight before surgery,except medications with 15 cc of water. Medication instructions provided according to the PAT guidelines. History Surgery Operation Date: 10/13/24 07:45 Proposed Procedures p L1-L2 Decompression and Fusion Connect to Previous Hardware, Spinal Cord Monitoring - Aureliano Panchal, Height/Weight Height: 5 ft 6 in Weight: 63.3 kg Allergies Allergy/AdvReac Type Severity Reaction Status Date / Time Penicillins Allergy Severe THROAT Verified 09/06/24 13:58 SWELLING-ANAPHYLACTIC adhesive Allergy Rash Verified 09/06/24 13:58 Sulfa (Sulfonamide AdvReac Mild GI Verified 09/06/24 13:58 Antibiotics) UPSET-NAUSEA AND VOMITING Medications Home Medications Medication Instructions Recorded Confirmed Last Taken acetaminophen 325 mg tablet 325 mg PO QID PRN Pain 03/30/19 09/06/24 04/27/19 13:00 (Tylenol) amlodipine 2.5 mg tablet 2.5 mg PO QAM 03/30/19 09/06/24 04/28/19 03:00 atorvastatin 80 mg tablet 80 mg PO PM 03/30/19 09/06/24 04/27/19 13:00 calcium 600 mg (as 2 cap PO BID 03/30/19 09/06/24 04/27/19 13:00 carbonate)-vitamin D3 5 mcg (200 unit) capsule (Calcium 600 + D(3)) glipizide 2.5 mg tablet, extended 2.5 mg PO BID 03/30/19 09/06/24 04/27/19 04:30 release 24 hr metoprolol succinate 50 mg capsule 50 mg PO QPM 03/30/19 09/06/24 04/27/19 13:00 sprinkle, ext. 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 Carotid artery stenosis <50% stenosis to bilateral ICAs per 08/02/22 carotid duplex Degenerative disc disease Diabetes NIDDM History of blood transfusion remote hx (around 2005)- s/p aorto-iliac femoral bypass HTN (hypertension) Hyperlipidemia Myocardial Infarction 2001 Neuropathy bilat legs Osteoarthritis Osteoporosis PVD (peripheral vascular disease) b/l [id number] bypass (2005) s/p angioplasty of prior graft in 2019 follows with vascular, [facility] Spinal stenosis Stenosis of left subclavian artery 50-69% per 2022 carotid duplex Exercise / Class Metabolic Activity II 4-5 Yardwork/Stairs/Walk up hill (one flight of stairs - no chest pain or SOB ) Past Family History Family History Mother Family history of diabetes mellitus Other No family history of adverse response to anesthesia Past Surgical History Surgical History History of zbelg-hwnoz-vmucbxg bypass B/L LE (2005) History of cardiac cath 2002- stent x 1 History of colonoscopy History of lumbar fusion [facility] 2016 History of shoulder surgery Left History of tonsillectomy History of tooth extraction History of tubal ligation Hx of bilateral cataract extraction Status post lumbar spine operative procedure for decompression of spinal cord (04/2019) Past Anesthesia History No Hx of Anesthesia Complications and No Family Hx of Anesthesia Complications History of PONV No Hx of PONV and No Hx of Motion Sickness Social History Smoking Status: Current every day smoker tobacco type: cigarettes Smoking cigarettes per day: 1/2 ppd x several years- advised Do You Dip or Chew Tobacco: No Hx Alcohol Use: No Hx Substance Use: No substance use type: does not use Review of Systems Patient denies chest pain, shortness of breath, dyspnea on exertion, reflux, cough, wheezing, palpitations. No hx of seizures, stroke, apnea/snoring. No hx of blood clots Physical Exam Vital Signs VITALS BP 151/55 P 62 TEMP 98.2 SP02 98% RESP 16 Constitutional no acute distress ENMT Mouth: no TMJ clicking Thyromental Distance: > or= 3.5 Finger Breadths (3.5) Mallampati Class: I Full dentures on top and bottom Neck + limited neck extension (minimal) Respiratory normal respiratory effort; no respiratory distress Auscultation: lungs clear to auscultation bilaterally and + diminished lung sounds (mildly throughout ); no wheezes Cardiovascular Rate/Rhythm: regular rate and regular rhythm Heart Sounds: no murmur Vessels: no carotid bruit Musculoskeletal Spine: no pain with cervical ROM Extremities: extremities normal to inspection Psychiatric Orientation: alert Lab Results Anesthesia Preop Results Results Anesthesia Widget: WBC 9.22 K/ul (4.8-10.8) 09/14/24 Hgb 14.1 g/dl (12.0-16.0) 09/14/24 Hct 42.4 % (37.0-47.0) 09/14/24 Plt 161 K/uL (130-400) 09/14/24 Na 141 mmol/L (136-145) 09/14/24 K 3.6 mmol/L (3.5-5.1) 09/14/24 Cl 102 mmol/L (98-107) 09/14/24 CO2 30 mmol/L (21-32) 09/14/24 BUN 15 mg/dl (6-23) 09/14/24 Creat 0.67 mg/dl (0.6-1.2) 09/14/24 Glucose Level 110 mg/dl (70-99(Fasting)) H 09/14/24 PT 10.5 Seconds (9.0-12.0) 09/14/24 PTT 31 Seconds (21-31) 09/14/24 INR 1.0 (0.9-1.1) 09/14/24 HA1c 7.0 % (4.5-5.6) H 09/14/24 Urine Color Yellow 09/14/24 Urine Appearance Clear (Clear) 09/14/24 Urine pH 6.5 (4.5-7.5) 09/14/24 Urine Specific [place] 1.010 (1.000-1.030) 09/14/24 Urine Protein Negative (Negative) 09/14/24 Urine Glucose (UA) Negative (Negative) 09/14/24 Urine Ketones Negative (Negative) 09/14/24 Urine Blood Negative (Negative) 09/14/24 Urine Nitrite Negative (Negative) 09/14/24 Urine Bilirubin Negative (Negative) 09/14/24 Urine Urobilinogen Negative (Negative) 09/14/24 Urine Leukocyte Esterase 2+ (Negative) H 09/14/24 Urine WBC (Auto) 0-5 /hpf (0-5) 09/14/24 Urine RBC (Auto) 6-10 /hpf (0-2) H 09/14/24 Urine Hyaline Casts (Auto) 0-2 /lpf (0-2) 09/14/24 Urine Epithelial Cells (Auto) 0-2 /hpf (0-2) 09/14/24 Urine Bacteria (Auto) None Seen (None Seen) 09/14/24 Blood Type A Positive 09/14/24 Antibody Screen NEGATIVE 09/14/24 Testing Electrocardiogram Date: 09/14/24 Sinus rhythm with frequent PVCs at 64 bpm Possible inferior infarct (cited on or before April 06, 2019) When compared to EKG from April 06, 2019PVCs are not present per cardiology Chest X-Ray Date: 09/14/24 FINDINGS: Heart size and pulmonary vasculature are normal. Lungs are hyperexpanded, stable. No consolidation or pleural effusion. Lumbar metallic fusion is partially visualized. IMPRESSION: No acute findings. Stress Test Date: 04/22/19 Type: nuclear Abnormal Lexiscan myocardial perfusion scan. Demonstrates moderate size infarction (mild to moderate intensity mostly fixed defect involving mid inferior, basal inferior, mid inferior lateral and basal inferior lateral segments) with mild radha-infarct infarct ischemia TID normal at 1.16 Proximal two thirds of inferior lateral and basal wall inferior wall are hypokinetic. Rest of LV contracts normally LVEF is 55% and post Lexiscan study When compared to study from July 22, 2016no significant change Other Testing Carotid duplex 08/02/2022 = less than 50% stenosis of bilateral ICAs. Left gallegos bclavian artery with evidence of 50-69% stenosis.
[2024-10-13] MEDS: LR 15ML/HR IV SCH (08:10)
[2024-10-13] MEDS: LR 60ML/HR IV SCH (08:10)
[2024-10-13] MEDS: VANCOMYCIN HCL 1,000 MG/270 ML BAG IV SCH (08:10)
[2024-10-13] MEDS: CeleBREX 200 MG CAP PO SCH (08:12)
[2024-10-13] MEDS ORDERED: DEXAMETHASONE SOD INJ 4 MG/ML VIAL ONE (08:25)
[2024-10-13] MEDS ORDERED: ONDANSETRON INJ 2 MG/ML 2 ML VIAL ONE (08:25)
[2024-10-13] MEDS ORDERED: PROPOFOL IV EMULSION 10 MG/ML 20 ML VIAL IV ONE (08:25)
[2024-10-13] MEDS ORDERED: LIDOCAINE 2% 2 ML VIAL/AMP(20MG/ML) INFIL ONE (08:25)
[2024-10-13] MEDS ORDERED: ROCURONIUM BROMIDE 10 MG/ML 5 ML VIAL IV ONE ×2 (08:25→10:42)
[2024-10-13] MEDS ORDERED: MIDAZOLAM HCL 1 MG/ML 2ML VIAL ONE (08:26)
[2024-10-13] MEDS: ACETAMINOPHEN 500 MG TAB PO SCH (08:42)
[2024-10-13] MEDS: GABAPENTIN 300 MG CAP PO SCH (08:42)
[2024-10-13] MEDS ORDERED: ATROPINE SULFATE 0.1 MG/ML 10ML SYR IV PRN (08:55)
[2024-10-13] MEDS ORDERED: ONDANSETRON INJ 2 MG/ML 2 ML VIAL IV PRN ×2 (08:55→13:23)
[2024-10-13] MEDS ORDERED: HYDROmorphone INJ 1 MG/ML SYRINGE IV PRN ×2 (08:55→13:23)
--- NOTE | 2024-10-13 09:08 | History & Physical Bridge Note ---
Date of Service October 13, 2024 History & Physical Bridge Note I have examined the patient, reviewed the History & Physical and in the interval since the performance of the History & Physical I have noted the following changes of clinical significance: no changes noted
--- NOTE | 2024-10-13 09:09 | History & Physical Report ---
Date of Service October 13, 2024 Assessment & Plan (1) Other spondylosis with radiculopathy, lumbar region: Plan: T12 L1-L2 decompression and fusion, connection to previous hardware History of Present Illness Chief Complaint: Chronic back and leg pain Primary Care Provider: Franco Lopez PA-C This is a 74-year-old female that presents with chronic persistent back and leg symptoms after failing course of nonoperative care is here for surgical intervention. Allergies Allergy/AdvReac Type Severity Reaction Status Date / Time Penicillins Allergy Severe THROAT Verified 10/13/24 08:06 SWELLING-ANAPHYLACTIC adhesive Allergy Rash Verified 10/13/24 08:06 vancomycin Allergy Hives Verified 10/13/24 08:21 Sulfa (Sulfonamide AdvReac Mild GI Verified 10/13/24 08:06 Antibiotics) UPSET-NAUSEA AND VOMITING Home Medications Medication Instructions Recorded Confirmed Type acetaminophen 325 mg tablet 325 mg PO QID PRN Pain 03/30/19 10/13/24 History (Tylenol) amlodipine 2.5 mg tablet 2.5 mg PO QAM 03/30/19 10/13/24 History atorvastatin 80 mg tablet 80 mg PO PM 03/30/19 10/13/24 History calcium 600 mg (as 2 cap PO BID 03/30/19 10/13/24 History carbonate)-vitamin D3 5 mcg (200 unit) capsule (Calcium 600 + D(3)) glipizide 2.5 mg tablet, extended 2.5 mg PO BID 03/30/19 10/13/24 History release 24 hr metoprolol succinate 50 mg capsule 50 mg PO QPM 03/30/19 10/13/24 History sprinkle, ext. release 24 hr multivitamin 1 tab PO PM 03/30/19 10/13/24 History triamterene 37.5 1 tab PO QAM 03/30/19 10/13/24 History mg-hydrochlorothiazide 25 mg tablet oxycodone 5 mg tablet 5 mg PO Q6H PRN pain, severe #20 04/29/19 10/13/24 Rx tabs aspirin 81 mg tablet,delayed 81 mg PO DAILY 09/06/24 10/13/24 History release (Ecotrin Low Strength) Past Med/Surg History Problem List (Updated 10/13/24 @ 09:09 by Aureliano Panchal DO) Other spondylosis with radiculopathy, lumbar region Status post lumbar spine operative procedure for decompression of spinal cord Encounter for pre-operative examination Diabetes NIDDM Osteoarthritis Hyperlipidemia HTN (hypertension) PVD (peripheral vascular disease) b/l [id number]-[id number] bypass (2005)/follows with vascular/Dr. 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 Carotid artery stenosis <50% stenosis to bilateral ICAs per 08/02/22 carotid duplex Degenerative disc disease Diabetes NIDDM History of blood transfusion remote hx (around 2005)- s/p aorto-iliac femoral bypass HTN (hypertension) Hyperlipidemia Myocardial Infarction 2001 Neuropathy bilat legs Osteoarthritis Osteoporosis PVD (peripheral vascular disease) b/l bxvuc-ylwom-wnttmiu bypass (2005) s/p angioplasty of prior graft in 2019 follows with vascular, [facility] Spinal stenosis Stenosis of left subclavian artery 50-69% per 2022 carotid duplex Surgical History History of yzgok-dlbgh-dnvbrtw bypass B/L LE (2005) History of cardiac cath 2002- stent x 1 History of colonoscopy History of lumbar fusion [facility] 2016 History of shoulder surgery Left History of tonsillectomy History of tooth extraction History of tubal ligation Hx of bilateral cataract extraction Status post lumbar spine operative procedure for decompression of spinal cord (04/2019) Family History Mother Family history of diabetes mellitus Other No family history of adverse response to anesthesia Social History Smoking Status: Current every day smoker Tobacco Type: Cigarettes Cigarettes Per Day: 1/2 ppd x several years- advised; Second Hand Exposure: Yes ( smokes); Do You Dip or Chew Tobacco: No; Tobacco Cessation Education Requested by Patient: No Hx Alcohol Use: No Hx Substance Use: No Preferred Language: [place] Communication Ability: Effective International Affairs Vice President Required: No Beliefs That Will Affect Care: None marital status: Current Living Situation: Spouse Other Information That Helps Us Care for You: No Feels Safe at Home: Yes Safety Concerns: Feels Safe At This Time Assistive Devices: Denture - Upper, Denture - Lower and Glasses Physical Exam Physical Exam: Patient is alert and oriented heart regular rhythm Lungs clear Results & Data Results & Data Vital Signs (Past 12 Hours) Vital Signs Temp Pulse Resp BP Pulse Ox O2 Del Method 10/13/24 08:14 37.0 C 69 20 171/62 H 95 Room Air
[2024-10-13] MEDS: CLINDAMYCIN/D5W 900 MG/50 ML BAG IV SCH (09:44)
[2024-10-13] MEDS ORDERED: PHENYLEPHRINE 100MCG/ML 5ML SYR ONE (10:07)
[2024-10-13] MEDS ORDERED: ALBUTEROL HFA 8 GM INHALER INH ONE (10:08)
[2024-10-13] MEDS ORDERED: PHENYLEPHRINE HCL 10 MG/ML VIAL ONE (10:42)
[2024-10-13] MEDS: ceFAZolin 330 MG/ML 1 GM VIAL ONE ×3 (10:46→11:20)
[2024-10-13] MEDS ORDERED: HYDROmorphone INJ 2 MG/ML SYR/VIAL ONE (10:51)
[2024-10-13] MEDS: FLOSEAL HEMOSTATIC MATRIX 10ML TOP ONE (11:19)
[2024-10-13] MEDS: BUPIVACAINE/EPINEPHRINE 0.25% 1:200,000 30 ML VIAL ONE (11:19)
[2024-10-13] MEDS ORDERED: SUGAMMADEX SODIUM 200 MG/2 ML VIAL IV ONE (11:20)
--- NOTE | 2024-10-13 11:28 | Operative Report ---
Post Operative Report Pre & Post Diagnosis Operation Date: 10/13/24 09:05 Pre-Op Diagnosis: Spondylosis with Radiculopathy, Lumbar Region Post-Op Diagnosis: Spondylosis with Radiculopathy, Lumbar Region I identified the patient and participated in the time-out.: Yes Procedure Operation Date: 10/13/24 09:05 Actual Procedures #1 lumbar decompression with bilateral medial facetectomies and foraminotomies T12-L1 L1-L2. #2 posterior spinal fusion T12-L2. #3 placement posterior instrumentation T12-L1 with connectors at L2-L3 using medic Creo. #4 interbody fusion L1-L2. #5 placement of Spira 10 x 26 mm interbody cage L1-L2. #6 placement locally harvested morselized autograft and posterior gutters. #7 placement of Proteus combined with Koros in the posterior lateral gutters and os design in the interbody space. #8 application of versa wrap of the exposed dura. Surgeon Aureliano Panchal, Cardroom Manager Lynn Solano Estimated Blood Loss 150 Findings Consistent with Post-Op Diagnosis Specimens None Indications This is a 74-year-old female presents manage diagnosis of failing course of nonoperative care is here for surgical invention. Description of Procedure Patient was met with identified informed consent obtained. Patient was then taken to the operative suite underwent patient placed in prone position on the Silverio table up with a chest pad and hip bolsters. All bony prominences well- padded I suspected to ensure no external pressure placed upon them. This point the thoracolumbar spine was prepped and draped in sterile fashion. Sharp dissection with the assistance of Bovie cautery was performed down to exposing the lamina and transverse processes of the T12-L1 and the silviano at L2-L3. From caudal cephalad fashion complete laminectomy L1 was performed occluding bilateral medial facetectomies and foraminotomies addressing all neural compression. I also performed partial laminectomy of T12 with bilateral medial facetectomies to address all subarticular stenosis. Pedicle screws then placed in T12-L1 bilaterally with assistance of fluoroscopy and connectors attached to the silviano at L2-L3. By way of transforaminal approach on the right complete discectomy of L1-L2 was performed endplates corrected to subcortical bleeding bone and a 10 x 26 mm spiral cage filled with os design bone graft tapped in position. The process rods were then contoured placed and locked into position bilaterally. The transverse processes of T12 L1-L2 burred to subcortically bone. Koros combined with Proteus and local autograft placed in the posterior gutters. First wrap placed of exposed dura. 15 round SAMANTHA drain inserted. The incision was then closed with 1 Vicryl fascia 2-0 Vicryl subcutaneously and 4 Monocryl for final skin closure. Steri-Strips and sterile dressing placed. Patient waken taken to PACU stable condition. Please note Lynn Solano was present at the entire procedure and while the patient positioning complex portion of the surgery and final skin closure. I attest to the content of the Intraoperative Record and any orders documented therein. Any exceptions are noted below.
--- NOTE | 2024-10-13 12:51 | Anesthesiology Progress Note ---
Date of Service October 13, 2024 Anesthesia Post Procedure Vital Signs Vital Signs: Temp Pulse Pulse Resp BP Pulse Ox O2 Del Method 10/13/24 12:30 60 16 111/45 L 96 Oxymask 10/13/24 12:20 54 L 15 115/46 L 98 Oxymask 10/13/24 12:10 59 L 20 113/44 L 100 Oxymask 10/13/24 12:00 61 18 125/56 L 95 Oxymask 10/13/24 11:50 61 12 125/46 L 100 Oxymask 10/13/24 11:40 36.1 C L 62 12 149/44 H 99 Oxymask 10/13/24 08:14 37.0 C 69 20 171/62 H 95 Room Air O2 Flow Rate 10/13/24 12:30 3 10/13/24 12:20 3 10/13/24 12:10 3 10/13/24 12:00 3 10/13/24 11:50 3 10/13/24 11:40 6 10/13/24 08:14 Transfer of Care Handoff Completed per policy Notes Mental Status: alert / awake / arousable and participated in evaluation Patient Amnestic to Procedure: Yes Nausea / Vomiting: adequately controlled Pain: adequately controlled Airway Patency, RR, SpO2: stable & adequate BP & HR: stable & adequate Hydration State: stable & adequate Anesthetic Complications: no major complications apparent and Pt Satisfied with anesthetic care
--- NOTE | 2024-10-13 13:10 | Fluoroscopy Report ---
FL lumbar spine 2-3V CLINICAL HISTORY: L1-L2 DECOMPRESSION/FUSION COMPARISON STUDY: None FLUOROSCOPY TIME: 12 seconds FLUOROSCOPY IMAGES: 3 EXPOSURE DOSE: 6 mGy FINDINGS: Fluoroscopy was provided for lumbar surgery. IMPRESSION: Intraoperative fluoroscopy. ACT 112: Negative or not required by law. Electronically signed by: Abdon Naik M.D. 10/13/2024 1:08 PM
[2024-10-13] MEDS ORDERED: diphenhydrAMINE Capsule 25 MG CAP PO PRN (13:23)
[2024-10-13] MEDS ORDERED: LORazepam 0.5 MG TAB PO PRN (13:23)
[2024-10-13] MEDS ORDERED: SOD PHOSPHATE/SOD BIPHOSPHATE ENEMA 132 ML BTL PR PRN (13:23)
[2024-10-13] MEDS ORDERED: METOCLOPRAMIDE HCL INJ 5 MG/ML 2 ML VIAL IV PRN (13:23)
[2024-10-13] MEDS ORDERED: ALUMINUM/MAGNESIUM SUSP 30 ML UDC PO PRN (13:23)
[2024-10-13] MEDS ORDERED: FAMOTIDINE 20 MG TAB PO PRN (13:23)
[2024-10-13] MEDS ORDERED: ONDANSETRON 4 MG OD TAB PO PRN (13:23)
[2024-10-13] MEDS ORDERED: ACETAMINOPHEN 1,000 MG/100 ML VIAL IV PRN (13:23)
[2024-10-13] MEDS ORDERED: NALOXONE HCL 0.4 MG/1 ML VIAL/CARP IV PRN (13:23)
[2024-10-13] MEDS ORDERED: HYDROmorphone INJ 0.5 MG/0.5 ML SYR IV PRN (13:23)
[2024-10-13] MEDS ORDERED: DO NOT ADMINISTER FLU VACCINE PRN (13:23)
[2024-10-13] MEDS ORDERED: DO NOT ADMINISTER PNEUMOCOCCAL VACCINE PRN (13:23)
[2024-10-13] MEDS ORDERED: MAGNESIUM HYDROXIDE SUSP 30 ML UDC PO PRN (13:23)
[2024-10-13] MEDS ORDERED: ACETAMINOPHEN 325 MG TAB PO PRN (13:23)
[2024-10-13] MEDS ORDERED: PROMETHAZINE 12.5 MG/50.5 ML BAG IV PRN (13:23)
[2024-10-13] MEDS: LACTATED RINGER'S 1,000 ML IV SCH (13:34)
--- NOTE | 2024-10-13 14:57 | Hospitalist Consultation ---
Date of Consultation October 13, 2024 Assessment & Plan (1) Other spondylosis with radiculopathy, lumbar region: (2) S/P spinal surgery: Patient is a 74y/o F with PMHx significant for DM type II, diabetic peripheral angiopathy, CAD with history of inferior wall STEMI in 2001 s/p PCI with DAMIEN to RCA, HLD, HTN, PAD with history of aortobifemoral bypass in 2005 and s/p angioplasty of prior graft in 2019 due to femoral anastomotic stenoses, left subclavian artery stenosis, bilateral carotid artery stenosis, age-related osteoporosis, tobacco use disorder and other problems as outlined in her chart who is being seen in consultation for routine postoperative medical management s/p elective T12-L1, L1-L2 decompression and fusion plus hardware connection performed by Dr. Panchal earlier today due to lumbar spondylosis with radiculopathy. Per primary service for pain control, wound care, anticoagulation and activities Continue incentive spirometry and PT/OT when appropriate as per primary service Monitor H/H for ABLA [EBL: 150mL, preop Hgb: 14.1] and transfuse blood products PRN (3) HTN (hypertension): BP on softer side postop Hold Norvasc, triamterene-HCTZ for now --> resume as able, routine BP monitoring (4) CAD (coronary artery disease): (5) History of ST elevation myocardial infarction (STEMI): Continue BB, statin and ASA (6) DM type 2 (diabetes mellitus, type 2): Hold glipizide for now, SSI while inpt Hgb A1c 6.9% 1mo ago Monitor BSG checks Appreciate glycemic pharm assistance DVT Prophylaxis: As per primary service Disposition: Routine d/c planning as per primary service Thank you for this consultation. We will follow the patient with you during their hospital stay. You can reach a member of the [facility] Hospitalist Team 23/09 via [employer]. Patient seen in collaboration with Dr. Billings. Please see addendum. I spent a total of 42 minutes coordinating, documenting, and providing care for this patient excluding time spent in the performance of separately billed services or time spent by another provider/QHP. This included personally reviewing all current laboratories and imaging studies, medical reconciliation, outpatient chart review and discussion with specialists. This chart was completed in part utilizing Speech Voice Recognition Software. Grammatical errors, random word insertions, pronoun errors, and incomplete sentences are an occasional consequence of this system due to software limitations, ambient noise, and hardware issues. Any formal questions or concerns about the content, text, or information contained within the body of this dictation should be directly addressed to the provider for clarification. Supervising Physician Co-Signing Physician Notes Patient seen at bedside. Patient resting comfortably in bed. Post op day 0 for thoracic and lumbar decompression. Monitor Hgb, creatinine, leukocytosis daily. Monitor for post op constipation, medical complications. Stop redundant prn medications to reduce polypharmacy. I have seen and discussed the case with the collaborating advanced practitioner. I agree with the above H&P. I have reviewed and confirmed the patients medical history, the findings on physical examination, and the patients diagnosis and treatment plan with John HOROWITZ and agree with the information documented. I spent a total of 15 minutes coordinating, documenting, and providing care for this patient excluding time spent in the performance of separately billed services. All of the aforementioned completed outside of collaborating with the assigned advanced practitioner for a full treatment plan. I have reviewed the advanced practitioner's documentation, and I agree with, and take responsibility for the plan of care History of Present Illness Reason for Consultation: Routine postoperative medical management Requesting Physician: Aureliano Panchal DO Attending Physician: Aureliano Panchal DO History of Present Illness Patient is a 74y/o F with PMHx significant for DM type II, diabetic peripheral angiopathy, CAD with history of inferior wall STEMI in 2001 s/p PCI with DAMIEN to RCA, HLD, HTN, PAD with history of aortobifemoral bypass in 2005 and s/p angioplasty of prior graft in 2020 due to femoral anastomotic stenoses, left subclavian artery stenosis, bilateral carotid artery stenosis, age-related osteoporosis, tobacco use disorder and other problems as outlined in her chart who is being seen in consultation for routine postoperative medical management s/p elective T12-L1, L1-L2 decompression and fusion plus hardware connection performed by Dr. Panchal earlier today due to lumbar spondylosis with radiculopathy. History obtained from the patient and associated chart review. Pain well-controlled postoperatively. Reports radicular pain in LLE has improved. States this was her third back surgery. No any major concerns or complaints. Denies any SOB or chest pain. Allergies Allergy/AdvReac Type Severity Reaction Status Date / Time Penicillins Allergy Severe THROAT Verified 10/13/24 08:06 SWELLING-ANAPHYLACTIC adhesive Allergy Rash Verified 10/13/24 08:06 vancomycin Allergy Hives Verified 10/13/24 08:21 Sulfa (Sulfonamide AdvReac Mild GI Verified 10/13/24 08:06 Antibiotics) UPSET-NAUSEA AND VOMITING Home Medications Medication Instructions Recorded Confirmed Type acetaminophen 325 mg tablet 325 mg PO QID PRN Pain 03/30/19 10/13/24 History (Tylenol) amlodipine 2.5 mg tablet 2.5 mg PO QAM 03/30/19 10/13/24 History atorvastatin 80 mg tablet 80 mg PO PM 03/30/19 10/13/24 History calcium 600 mg (as 2 cap PO BID 03/30/19 10/13/24 History carbonate)-vitamin D3 5 mcg (200 unit) capsule (Calcium 600 + D(3)) glipizide 2.5 mg tablet, extended 2.5 mg PO BID 03/30/19 10/13/24 History release 24 hr metoprolol succinate 50 mg capsule 50 mg PO QPM 03/30/19 10/13/24 History sprinkle, ext. 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 PVD (peripheral vascular disease) b/l leepo-hwuvq-cfewyqq bypass (2005) s/p angioplasty of prior graft in 2019 follows with vascular, [facility] Hyperlipidemia Osteoarthritis Diabetes NIDDM Neuropathy bilat legs Carotid artery stenosis <50% stenosis to bilateral ICAs per 08/02/22 carotid duplex History of blood transfusion remote hx (around 2005)- s/p aorto-iliac femoral bypass Spinal stenosis Degenerative disc disease Osteoporosis Myocardial Infarction 2001 Surgical History Status post lumbar spine operative procedure for decompression of spinal cord (04/2019) Hx of bilateral cataract extraction History of colonoscopy History of tooth extraction History of tonsillectomy History of tubal ligation History of shoulder surgery Left History of lumbar fusion [facility] 2016 History of qpnmh-cmlmb-oocdokp bypass B/L LE (2005) History of cardiac cath 2001- stent x 1 Family History Mother Family history of diabetes mellitus Other No family history of adverse response to anesthesia Social History Smoking Status: Current every day smoker Tobacco Type: Cigarettes Cigarettes Per Day: 1/2 ppd x several years- advised; Second Hand Exposure: Yes ( smokes); Do You Dip or Chew Tobacco: No; Tobacco Cessation Education Requested by Patient: No Hx Alcohol Use: No Hx Substance Use: No Preferred Language: Kazakh Communication Ability: Effective Customer Support Executive Required: No Beliefs That Will Affect Care: None marital status: Current Living Situation: Spouse Other Information That Helps Us Care for You: No Feels Safe at Home: Yes Safety Concerns: Feels Safe At This Time Assistive Devices: Cane and Walker Review of Systems Review of Systems: At least ten systems reviewed and negative, except as noted in the HPI. Physical Exam Physical Exam: General: Elderly F, NAD, laying down in bed, A&Ox3, pleasant, appears comfortable HEENT: Normocephalic, atraumatic, moist mucous membranes Respiratory: Normal respiratory effort, CTAB Cardiovascular: RRR, no BLE edema Abdomen/GI: Active bowel sounds, soft/nondistended, nontender to palpation in all quadrants : + Cruz catheter intact and draining clear yellow urine w/o issue Extremities/MSK: Surgical dressing on low back C/D/I, SAMANTHA x 1 intact and draining serosanguineous output w/o issue, actively moves all extremities Neurologic: No overt focal deficits, CN's II-XI not formally tested but appear grossly intact bilaterally Results & Data Results & Data Vital Signs (Past 12 Hours) Vital Signs Temp Pulse Pulse Resp BP Pulse Ox O2 Del Method 10/13/24 14:20 67 16 131/71 96 Nasal Cannula 10/13/24 13:52 36.7 C 57 L 16 108/63 94 Nasal Cannula 10/13/24 13:39 Nasal Cannula 10/13/24 13:23 36.7 C 62 14 100/56 L 94 Nasal Cannula 10/13/24 13:05 54 L 13 115/52 L 95 Nasal Cannula 10/13/24 12:50 69 18 104/43 L 92 Nasal Cannula 10/13/24 12:40 36.8 C 62 13 111/49 L 97 Nasal Cannula 10/13/24 12:30 60 16 111/45 L 96 Oxymask 10/13/24 12:20 54 L 15 115/46 L 98 Oxymask 10/13/24 12:10 59 L 20 113/44 L 100 Oxymask 10/13/24 12:00 61 18 125/56 L 95 Oxymask 10/13/24 11:50 61 12 125/46 L 100 Oxymask 10/13/24 11:40 36.1 C L 62 12 149/44 H 99 Oxymask 10/13/24 08:14 37.0 C 69 20 171/62 H 95 Room Air O2 Flow Rate 10/13/24 14:20 2 10/13/24 13:52 2 10/13/24 13:39 2 10/13/24 13:23 2 10/13/24 13:05 2 10/13/24 12:50 2 10/13/24 12:40 2 10/13/24 12:30 3 10/13/24 12:20 3 10/13/24 12:10 3 10/13/24 12:00 3 10/13/24 11:50 3 10/13/24 11:40 6 10/13/24 08:14 Diagnostic Findings Lumbar Spine X-Ray 10/13/24 09:05 FL lumbar spine 2-3V CLINICAL HISTORY: L1-L2 DECOMPRESSION/FUSION COMPARISON STUDY: None FLUOROSCOPY TIME: 12 seconds FLUOROSCOPY IMAGES: 3 EXPOSURE DOSE: 6 mGy FINDINGS: Fluoroscopy was provided for lumbar surgery. IMPRESSION: Intraoperative fluoroscopy. ACT 112: Negative or not required by law. Electronically signed by: Abdon Naik M.D. 10/13/2024 1:08 PM (3) HTN (hypertension) Hypertension type: unspecified Qualified Code(s): I10 - Essential (primary) hypertension (4) CAD (coronary artery disease) Associated angina: unspecified whether angina present Coronary Disease- Associated Artery/Lesion type: unspecified vessel or lesion type [place] vs. transplanted heart: [place] heart Qualified Code(s): I25.10 - Atherosclerotic heart disease of [place] coronary artery without angina pectoris (6) DM type 2 (diabetes mellitus, type 2) Diabetes mellitus complication status: with other specified complication Diabetes mellitus meterman insulin use: unspecified intermediate insulin use status Qualified Code(s): E11.69 - Type 2 diabetes mellitus with other specified complication
[2024-10-13] MEDS ORDERED: CARBOHYDRATES FOR HYPOGLYCEMIA PO PRN (15:15)
[2024-10-13] MEDS ORDERED: GLUCOSE 10 TAB/TUBE PO PRN (15:15)
[2024-10-13] MEDS ORDERED: GLUCAGON FOR INJ 1 MG VIAL SQ PRN (15:15)
[2024-10-13] MEDS ORDERED: DEXTROSE 50% 50 ML SYRINGE IV PRN (15:15)
[2024-10-13] MEDS ORDERED: GLUCOSE 40% GEL 15 GM TUBE PO PRN (15:15)
[2024-10-13] MEDS ORDERED: PHARMACY GLYCEMIC MGMT CONSULT PRN (15:15)
[2024-10-13] MEDS: INSULIN ASPART PER UNIT CHARGE SC SCH (17:09)
[2024-10-13] MEDS: LANTUS PER UNIT CHARGE SC ONE (17:09)
[2024-10-13] MEDS: METOPROLOL SUCC 50MG EXT REL TAB PO SCH (20:40)
[2024-10-13] MEDS: ACETAMINOPHEN 500 MG TAB PO PRN (20:40)
[2024-10-13] MEDS: ATORVASTATIN 40 MG TAB PO SCH (20:40)
[2024-10-13] MEDS: DOCUSATE SODIUM/SENNA 50/8.6MG TAB PO SCH (20:40)
[2024-10-13] MEDS: CALCIUM 600MG + VIT D 400 IU TAB PO SCH (20:40)
[2024-10-13] MEDS ORDERED: glipiZIDE ER 2.5 MG TABCR PO SCH (21:00)
[2024-10-13] MEDS: LANTUS PER UNIT CHARGE SC SCH (21:36)
[2024-10-14] MEDS: INSULIN ASPART PER UNIT CHARGE SC SCH (00:30)
[2024-10-14] MEDS: POLYETHYLENE (MIRALAX) 17 GM PACK PO SCH (05:58)
[2024-10-14 07:41] VITALS: RESP 16
[2024-10-14] MEDS: LANTUS PER UNIT CHARGE SC SCH (08:17)
[2024-10-14] MEDS: dexAMETHasone 6 MG in SYRINGE 0 ML IV SCH (08:18)
[2024-10-14] MEDS: ASPIRIN 81 MG ECTAB PO SCH (08:18)
[2024-10-14] MEDS ORDERED: TRIAMTERENE/HCTZ 37.5/25MG TAB PO SCH (09:00)
--- NOTE | 2024-10-14 10:19 | Orthopedic Progress Note ---
Date of Service October 14, 2024 Assessment & Plan (1) Other spondylosis with radiculopathy, lumbar region: Plan: At this time continue physical therapy monitor check her SAMANTHA output hopefully discharge home the next few days. Admission and Anticipated Discharge Date Admission Date: October 13, 2024 Subjective back pain controlled back pain markedly improved. Tolerating physical therapy. Physical Exam Physical Exam: Patient is ambulating halls. This can strength testing. Very comfortable. Results & Data Vital Signs (Past 12 Hours) Vital Signs Temp Pulse Resp BP Pulse Ox O2 Del Method 10/14/24 07:40 36.8 C 62 16 120/73 95 Room Air 10/14/24 04:09 36.8 C 69 18 113/56 L 94 Room Air 10/14/24 00:15 36.5 C 64 18 135/62 92 Room Air 10/13/24 22:30 Room Air
--- NOTE | 2024-10-14 10:37 | Pharmacy Report ---
Pharmacy Glycemic Short Note 2 - Date of Service October 14, 2024 - Glycemic Short BSG Results (Last 24 hours): 10/13/24 10/13/24 10/13/24 11:42 13:31 16:42 POC Glucose 167 H 175 H 266 H 10/13/24 10/14/24 10/14/24 20:27 00:12 04:06 POC Glucose 235 H 122 H 139 H 10/14/24 06:47 POC Glucose 134 H OUTPATIENT ANTIDIABETIC REGIMEN: * glipizide 2.5mg PO BID * HbA1c 7.0% (09/14/24) ASSESSMENT: * Lida is a 74 year old female admitted status post spinal decompression/fusion POD #1 with a history of type 2 diabetes mellitus. Pharmacy has been consulted to assist with glycemic management while inpatient. * Fasting BSG this AM within goal, given dexamethasone 8mg IV perioperatively yesterday, received 0.35 units/kg to assist with covering steroid induced hyperglycemia. Will continue regimen and give daily with IV dexamethasone 6mg daily (day 03/05 today) * NovoLog at a weight based stress of 3, no changes at this time. PLAN FOR INPATIENT GLYCEMIC CONTROL: * Hold outpatient oral diabetes medications * Basal insulin * Lantus 20 units SQ daily with IV dexamethasone (Day 03/05) * Bolus insulin * NovoLog per scale ACHS or Q6hrs while NPO * Goal Range: Low 110 mg/dL - High 160 mg/dL * Correction Factor: 25 mg/dL/unit * Nutritional / Prandial insulin per carb ratio of 1 unit per 9 grams CHO consumed
[2024-10-14 11:12] LABS: Hematocrit (blood only) 31.6 % (37.0-47.0); Hemoglobin 10.6 g/dl (12.0-16.0); Immature Granulocytes # (auto) 0.12 K/uL (0.01-0.20); Immature Granulocytes % (auto) 0.7 %; Mean Corpuscular Hemoglobin 31.2 pg (25.0-34.0); Mean Corpuscular Volume 92.9 fL (80.0-100.0); Platelet Count 212 K/uL (130-400); RDW Standard Deviation 42.9 fL (36.4-46.3); Red Blood Count 3.40 M/uL (4.20-5.40); White Blood Count 17.98 K/ul (4.8-10.8)
[2024-10-14 11:25] LABS: Anion Gap 7.0 (3-11); Blood Urea Nitrogen 17.0 mg/dl (6-23); Calcium 9.3 mg/dl (8.6-10.3); Carbon Dioxide 29.0 mmol/L (21-32); Chloride 102.0 mmol/L (98-107); Creatinine Clr Calc Pharmacy 60.9 ml/min; Glucose 198.0 mg/dl (70-99(Fasting)); Magnesium 1.6 mg/dl (1.7-2.4); Potassium 3.9 mmol/L (3.5-5.1); Sodium 138.0 mmol/L (136-145)
--- NOTE | 2024-10-14 12:32 | Hospitalist Progress Note ---
Date of Service October 14, 2024 Assessment & Plan (1) Other spondylosis with radiculopathy, lumbar region: (2) S/P spinal surgery: (3) HTN (hypertension): (4) CAD (coronary artery disease): (5) History of ST elevation myocardial infarction (STEMI): (6) DM type 2 (diabetes mellitus, type 2): Plan 74 year old female with PMH significant for DM type II, diabetic peripheral angiopathy, CAD with history of inferior wall STEMI in 2001 s/p PCI with DAMIEN to RCA, HLD, HTN, PAD with history of aortobifemoral bypass in 2005 and s/p angioplasty of prior graft in 2019 due to femoral anastomotic stenoses, left subclavian artery stenosis, bilateral carotid artery stenosis, age-related osteoporosis, tobacco use disorder, and lumbar spondylosis with radiculopathy who underwent T12 L1-L2 decompression and fusion on 10/13/[address] Panchal. We have been consulted for post operative medical management. Lumbar spondylosis with radiculopathy POD#1 T12 L1-L2 decompression and fusion on 10/13/[address] Panchal Activity level, pain control, DVT prophylaxis, bowel regimen, wound/drain care per primary team Encourage incentive spirometer PT/OT consults today recommending home at dc Acute blood loss anemia Expected finding post-operatively EBL 150cc and SAMANTHA drain output 375cc so far Pre-op Hgb 14.1-> 10.6 today Patient asymptomatic Monitor CBC Leukocytosis WBC 17K today Likely secondary to steroids Low suspicion for infection with no s/s Monitor CBC Hypomagnesemia Mag 1.6 today Received repletion Recheck Mag in am Hypertension Intermittent soft BPs Hold home amlodipine and triamterene-HCTZ for now Monitor BPs and resume when able CAD, history of DC Hyperlipidemia Continue baby aspirin, statin, metoprolol succinate Diabetes type 2 Hgb A1C 6.9% in August 2024 Home glipizide on hold BSG ACHS and SSI while inpt Glycemic pharmacy consulted DVT Prophylaxis: TEDs/SCDs per primary team Code Status: FULL CODE PCP: Franco Lopez PA-C Disposition: dc to home in next 1-[address] Panchal Patient seen in collaboration with Dr Meek. Please see addendum. I spent a total of 50 minutes coordinating, documenting and providing care for this patient excluding time spent in the performance of separately billed services or time spent by another provider/QHP. Admission and Anticipated Discharge Date Admission Date: October 13, 2024 Supervising Physician Co-Signing Physician Notes Pt seen and examined by me, care coordinated w/ CURT Vidal, pls refer to her note above for further detail. Pt seen sitting in the chair this AM, feeling well. Pt reports pain is well controlled, she has been ambulating in hallway, Cruz catheter removed this AM - awaiting to void spontaneously. Denies any fever, chills, chest pain, shortness of breath, abd.pain, n/v. She is breathing comfortably on RA, heart sounds regular. Hgb down to 10.6, cont. to monitor H&H, and hemodynamic status. MD [place] Subjective Patient seen sitting up in chair Reports minimal low back pain, no leg symptoms Walked with PT which went well Denies dizziness, chest pain, SOB, abdominal pain, N/V Review of Systems Review of Systems: All systems reviewed & are unremarkable except as noted in Subjective Physical Exam Physical Exam: General/Psych: WD/WN, sitting up in chair, NAD, conversing easily Head: normocephalic, atraumatic Eyes: normal inspection, PERRL, conjunctivae pink ENT: external ear and nose normal, oropharynx normal Neck: normal visual inspection, trachea midline Respiratory: normal respiratory effort, lungs clear to auscultation, no wheeze/rales/rhonchi, no accessory muscle use Cardiovascular: regular rate and rhythm, no murmur/rub/gallop, no JVD Extremities: no cyanosis or clubbing, normal peripheral pulses, no BLE edema, sensation intact BLE Abdomen/GI: normal bowel sounds, soft, nontender Neurologic/MSK: A+Ox3, motor strength 5/5, moves all extremities Skin: no rashes, normal color, warm and dry; island dressing c/d/i; SAMANTHA drain with sanguinous output Results & Data Results & Data Vital Signs (Past 12 Hours) Vital Signs Temp Pulse Resp BP Pulse Ox O2 Del Method 10/14/24 07:40 36.8 C 62 16 120/73 95 Room Air 10/14/24 04:09 36.8 C 69 18 113/56 L 94 Room Air Laboratory Results Short CBC 10/14/24 Range/Units 10:47 WBC 17.98 H (4.8-10.8) K/ul Hgb 10.6 L (12.0-16.0) g/dl Hct 31.6 L (37.0-47.0) % Plt Count 212 (130-400) K/uL BMP 10/14/24 10:47 Sodium 138 Potassium 3.9 Chloride 102 Carbon Dioxide 29 BUN 17 Creatinine 0.77 Glucose 198 H Calcium 9.3 I have independently reviewed and interpreted patient's admitting labs including CBC and BMP. Medications Administered Current Inpatient Medications Acetaminophen (Acetaminophen 500 Mg Tab) 1,000 mg PO Q8H PRN PRN Reason: MILD Pain (1,2,3) & Pre PT Stop: 11/12/24 13:22 Last Admin: 10/14/24 08:44 Dose: 1,000 mg Amlodipine Besylate (Amlodipine Besylate 5 Mg Tab) 2.5 mg PO QAM ARCHANA Stop: 11/13/24 08:59 Aspirin (Aspirin 81 Mg Ectab) 81 mg PO DAILY ARCHANA Stop: 11/13/24 08:59 Last Admin: 10/14/24 08:18 Dose: 81 mg Atorvastatin Calcium (Atorvastatin 40 Mg Tab) 80 mg PO PM ARCHANA Stop: 11/12/24 20:59 Last Admin: 10/13/24 20:40 Dose: 80 mg Bisacodyl (Bisacodyl 10 Mg Supp) 10 mg DC DAILY PRN PRN Reason: Constipation Stop: 11/12/24 13:22 Calcium/Vitamin D (Calcium 600mg + Vit D 400 Iu Tab) 1 tab PO BID ARCHANA Stop: 11/12/24 20:59 Last Admin: 10/14/24 08:18 Dose: 1 tab Dextrose (Dextrose 50% 50 Ml Syringe) 25 - 50 ml IV UD PRN; Protocol PRN Reason: Hypoglycemia Protocol Stop: 11/12/24 15:14 Famotidine (Famotidine 20 Mg Tab) 20 mg PO Q12H PRN PRN Reason: Dyspepsia Stop: 11/12/24 13:22 Glucagon (Glucagon For Inj 1 Mg Vial) 1 mg SQ UD PRN; Protocol PRN Reason: Hypoglycemia Protocol Stop: 11/12/24 15:14 Glucose (Glucose 40% Gel 15 Gm Tube) 15 - 30 gm PO UD PRN; Protocol PRN Reason: Hypoglycemia Protocol Stop: 11/12/24 15:14 Glucose (Glucose 10 Tab/Tube) 4 - 8 tab PO UD PRN; Protocol PRN Reason: Hypoglycemia Protocol Stop: 11/12/24 15:14 Hydromorphone HCl (Hydromorphone Inj 0.5 Mg/0.5 Ml Syr) 0.5 mg IV Q3H PRN PRN Reason: MODERATE Pain(4,5,6)/Pre PT Stop: 10/27/24 13:22 Hydromorphone HCl (Hydromorphone Inj 1 Mg/Ml Syringe) 1 mg IV Q3H PRN PRN Reason: SEVERE Pain (7,8,9,10) Stop: 10/27/24 13:22 Hydroxyzine HCl (Hydroxyzine Hcl 25 Mg Tab) 25 mg PO Q8H PRN PRN Reason: Anxiety Stop: 11/12/24 13:22 Acetaminophen (Ofirmev) 1,000 mg in 100 mls @ 400 mls/hr IV Q8H PRN PRN Reason: MILD Pain (1,2,3) & Pre PT Stop: 10/14/24 13:23 Dexamethasone 6 mg/ Syringe 1.5 mls @ 1 mls/min IV DAILY ARCHANA Stop: 10/16/24 09:02 Last Admin: 10/14/24 08:18 Dose: 1 mls/min Influenza Virus Vaccine Quadrival (Do Not Administer Flu Vaccine) 1 each N/A PRN PRN PRN Reason: Notification Stop: 11/12/24 13:22 Insulin Aspart (Insulin Aspart Per Unit Charge) 0 units SC ACHS ARCHANA Stop: 11/12/24 16:29 Last Admin: 10/14/24 12:05 Dose: 6 units Insulin Glargine (Lantus Per Unit Charge) 20 units SC DAILY ARCHANA Stop: 10/16/24 09:01 Last Admin: 10/14/24 08:17 Dose: 20 units Metoprolol Succinate (Metoprolol Succ 50mg Ext Rel Tab) 50 mg PO QPM ARCHANA Stop: 11/12/24 20:59 Last Admin: 10/13/24 20:40 Dose: 50 mg Miscellaneous (Carbohydrates For Hypoglycemia ) 15 - 30 gm PO UD PRN PRN Reason: Hypoglycemia Protocol Stop: 11/12/24 15:14 Miscellaneous Information (Pharmacy Glycemic Mgmt Consult) 1 each N/A UD PRN PRN Reason: Consult Stop: 11/12/24 15:14 Naloxone HCl (Naloxone Hcl 0.4 Mg/1 Ml Vial/Carp) 0.1 mg IV Q5M PRN PRN Reason: Oversedation/Resp depression Stop: 11/12/24 13:22 Ondansetron HCl (Ondansetron Inj 2 Mg/Ml 2 Ml Vial) 4 mg IV Q6H PRN PRN Reason: Nausea &/or Vomiting Stop: 11/12/24 13:22 Ondansetron HCl (Ondansetron 4 Mg Od Tab) 4 mg PO Q6H PRN PRN Reason: Nausea Stop: 11/12/24 13:22 Oxycodone HCl (Oxycodone Hcl Ir 5 Mg Tab (Immediate Release)) 5 - 10 mg PO Q4H PRN PRN Reason: MOD/SEV Pain & Pre PT Stop: 10/27/24 13:22 Pneumococcal Polyvalent Vaccine (Do Not Administer Pneumococcal Vaccine) 1 each N/A PRN PRN PRN Reason: Notification Stop: 11/12/24 13:22 Polyethylene Glycol (Polyethylene (Miralax) 17 Gm Pack) 17 gm PO Q6 ARCHANA Stop: 11/13/24 05:59 Last Admin: 10/14/24 12:05 Dose: 17 gm Senna/Docusate Sodium (Docusate Sodium/Senna 50/8.6mg Tab) 2 tab PO HS [facility] Stop: 11/12/24 20:59 Last Admin: 10/13/24 20:40 Dose: 2 tab Triamterene/Hydrochlorothiazide (Triamterene/Hctz 37.5/25mg Tab) 1 tab PO QAM [facility] Stop: 11/13/24 08:59 (3) HTN (hypertension) Hypertension type: unspecified Qualified Code(s): I10 - Essential (primary) hypertension (4) CAD (coronary artery disease) Associated angina: unspecified whether angina present Coronary Disease- Associated Artery/Lesion type: unspecified vessel or lesion type [place] vs. transplanted heart: [place] heart Qualified Code(s): I25.10 - Atherosclerotic he art disease of [place] coronary artery without angina pectoris (6) DM type 2 (diabetes mellitus, type 2) Diabetes mellitus complication status: with other specified complication Diabetes mellitus intermediate insulin use: unspecified termite inspector insulin use status Qualified Code(s): E11.69 - Type 2 diabetes mellitus with other specified complication
[2024-10-14] MEDS: MAGNESIUM SULFATE / D5W 1 GM/100 ML BAG IV SCH (13:47)
[2024-10-15 08:01] VITALS: BP 157/65; PULSE 65; TEMP 98.6; O2SAT 97
--- NOTE | 2024-10-15 09:56 | Pharmacy Report ---
Pharmacy Glycemic Short Note 2 - Date of Service October 15, 2024 - Glycemic Short BSG Results (Last 24 hours): 10/14/24 10/14/24 10/14/24 10:47 11:17 16:23 Glucose 198 H POC Glucose 197 H 227 H 10/14/24 10/15/24 20:12 07:49 Glucose POC Glucose 180 H 104 H OUTPATIENT ANTIDIABETIC REGIMEN: * glipizide 2.5mg PO BID * HbA1c 7.0% (09/14/24) ASSESSMENT: 10/15/24: * Blood sugars remain somewhat elevated yesterday, though improved from day prior * Blood sugars ranging 134-227 mg/dL w/ fasting blood sugar of 104 mg/dL this morning * Received 37 units of insulin (20 units of basal and 17 units of prandial/correctional bolus) * Novolog tightened yesterday, do not anticipate any major changes to regimen at this time 10/14/24: * Lida is a 74 year old female admitted status post spinal deco mpression/fusion POD #1 with a history of type 2 diabetes mellitus. Pharmacy has been consulted to assist with glycemic management while inpatient. * Fasting BSG this AM within goal, given dexamethasone 8mg IV perioperatively yesterday, received 0.35 units/kg to assist with covering steroid induced hyperglycemia. Will continue regimen and give daily with IV dexamethasone 6mg daily (day 1/3 today) * NovoLog at a weight based stress of 3, no changes at this time. PLAN FOR INPATIENT GLYCEMIC CONTROL: * Hold outpatient oral diabetes medications * Basal insulin * Lantus 20 units SQ daily with IV dexamethasone (Day 2/) * Bolus insulin * NovoLog per scale ACHS or Q6hrs while NPO * Goal Range: Low 110 mg/dL - High 140 mg/dL * Correction Factor: 25 mg/dL/unit * Nutritional / Prandial insulin per carb ratio of 1 unit per 8 grams CHO consumed
--- NOTE | 2024-10-15 10:01 | Discharge Summary ---
Date of Service October 15, 2024 Admission HPI Per Admitting Provider This is a 74-year-old female that presents with chronic persistent back and leg symptoms after failing course of nonoperative care is here for surgical intervention. Principal Diagnosis Lumbar spondylosis with radiculopathy Discharge Data Allergies Allergy/AdvReac Type Severity Reaction Status Date / Time Penicillins Allergy Severe THROAT Verified 10/13/24 08:06 SWELLING-ANAPHYLACTIC adhesive Allergy Rash Verified 10/13/24 08:06 vancomycin Allergy Hives Verified 10/13/24 08:21 Sulfa (Sulfonamide AdvReac Mild GI Verified 10/13/24 08:06 Antibiotics) UPSET-NAUSEA AND VOMITING Consultations 10/13/24 13:23 Consult Hospitalist Routine Procedures Performed Operation Date: 10/13/24 09:05 Actual Procedures p T12, L1-L2, Decompression and Fusion Connect to Previous Hardware(Not Applicable) - Aureliano Panchal DO Ordered Studies 10/13/24 09:05 FL lumbar spine 2-3V Routine Hospital Course (1) Other spondylosis with radiculopathy, lumbar region: Patient underwent lumbar decompression fusion tolerated hosing to orthopedic for postoperative. Post ablation progressed appropriately. Excellent strength testing. SAMANTHA drain decreasing. Pain well-controlled. Subsidy discharged home. Discharge orders instructions from the chart further review. Total Time Total Time Spent Total Time Spent (In Minutes): 20 minutes Discharge Plan Discharge Items Patient Disposition: Home - Self-Care Reason For Visit: Neurogenic Claudication Two Lvel Lumbosacral Discharge Diagnosis: Lumbar spondylosis with radiculopathy Activity: As commented below Non-emergency contact: Primary Care Provider Call non-emergency contact if: you have any medication questions Follow-up/Referrals: Franco Lopez PA-C [Primary Care Provider] - Diet: Regular Addtl Attending Provider Instructions: ACTIVITY RECOMMENDATIONS: SELF CARE INSTRUCTIONS AFTER THORACIC/LUMBAR FUSIONS 1. You may walk to your tolerance. It is good exercise for your legs and back. Expect some back and intermittent leg aches and pains. 2. You may perform "counter-top" level activities (make a sandwich, garrett with a project, etc.). 3. No bending or lifting of more than 10 pounds or back twisting of any nature (roll like a log when turning in bed). 4. You may ride in a car for 20-30 minutes at a time. No driving until after your first visit with your doctor. 5. Frequent changes of position and restricting sitting to 30 minutes at a time will help limit the amount of back spasms and stiffness you may experience. 6. You may discontinue the use of ambulatory aids (cane, crutches, etc.) once your strength and confidence allow. 7. You may public improvement inspector the shower and let water strike your incision when you arrive home at least once daily. Do not take a tub bath, sit in a hot tub or go into a swimming pool until after your first recheck in the office. 8. You may resume previous diet. SPECIAL CARE INSTRUCTIONS: VERY IMPORTANT TO READ AND REVIEW A. Your surgical incision has been closed with a cosmetic suture under the skin that will dissolve in about 6 weeks. In 14 days, you can use a pair of clean scissors and cut the suture that is left outside of the skin at the ends of your incision. 1. The small skin tapes can be removed 7 days after surgery if they have not fallen off by that point. 2. You may keep the wound open to air as much as possible to promote healing after post-op day number 5 unless told otherwise by your doctor. 3. If you think the wound looks like it is becoming infected (redness or worsening drainage) and/or you are experiencing fever, chill or worsening back pain and muscle spasms, contact the office so that we may evaluate you as soon as possible. B. Complications are uncommon, but please contact us if you have any signs or symptoms of: 1. wound infection (fever higher than 102.5 degrees F, redness, separation of wound, drainage, or increasing pain from the incision) 2. blood clots in legs (pain, swelling, redness and warmth in legs) 3. urinary tract infection (fever higher than 102.5 degrees F, burning upon urination or increased frequency of urination) 4. nerve problems (inability to walk on your toes or heels, numbness, loss of bowel or bladder control) 5. any other symptoms that concern you C. Please call the office at if you have any concerns or questions about your operation or recovery. D. No smoking! Smoking drastically decreases the chance of a solid fusion. E. Do not take any anti-inflammatory medications (Indocin, Advil, Motrin, Aspirin, Naprosyn, etc.) as these may inhibit the chance of a solid fusion. Tylenol is okay to take for pain. MANAGING PAIN AFTER SPINAL SURGERY 1. Narcotic medication is intended for short-term use and will be provided for surgical pain. Surgical pain usually lasts for a period of 4-6 weeks. Narcotic medication includes Percocet, Vicodin, Darvocet, Tylenol #3 or Lortab. 2. Longer-term pain is more appropriately treated with non-narcotic medication such as Tylenol ES. 3. Muscle spasm is not appropriately treated with narcotics. Muscle relaxers such as Soma, Flexeril or Skelaxin can be used along with Tylenol ES. 4. Remember that we all live with some "aches and pains". This is not unusual or uncommon after an injury or as we get older. a. Back pain is expected and may include muscle spasms for 4 to 6 weeks after surgery. The pain should gradually improve. If the pain worsens for no apparent reason, please contact the office. b. Intermittent leg pain may also be experienced and should not be concerned about unless it worsens for no apparent reason. If so, please contact the office. 5. We will provide appropriate medication within the normal guidelines of their prescribed use. We will also be very cautious and aware of potential abuse and extended duration of patients' medication needs. a. Pain medications are for your comfort and to assist with sleep and rest so that the tissue can heal. They are not provided in order to return to normal activity and should not be used through the day. To do so or worsening pain at night can result from ongoing tissue damage and development of tolerance to the prescribed medicine. 6. Please allow 2-3 days to process refills. Prescriptions will not be mailed but must be picked up at the office. FOLLOW UP VISIT: Keep your scheduled follow-up appointment. Any questions, please call the office at . Pending Studies at Discharge: No Stand-Alone Forms: My [employer], Smoking Cessation Medications and DC Order Prescriptions: New tramadol 50 mg tablet 50 mg PO Q6H PRN (Reason: pain, moderate) Qty: 30 0RF oxycodone 5 mg tablet 5 mg PO Q6H PRN (Reason: pain) Qty: 30 0RF Rx Instructions: Oxycodone for severe pain tramadol for mild pain Continued multivitamin Tablet 1 tab PO PM atorvastatin 80 mg Tablet 80 mg PO PM acetaminophen [Tylenol] 325 mg Tablet 325 mg PO QID PRN (Reason: Pain) amlodipine 2.5 mg Tablet 2.5 mg PO QAM glipizide 2.5 mg Tablet Extended Release 24hr 2.5 mg PO BID triamterene-hydrochlorothiazid 37.5-25 mg Tablet 1 tab PO QAM calcium carbonate-vitamin D3 [Calcium 600 + D(3)] 600 mg calcium- 200 unit Capsule 2 cap PO BID metoprolol succinate 50 mg Capsule,Sprinkle,Er 24hr 50 mg PO QPM oxycodone 5 mg tablet 5 mg PO Q6H PRN (Reason: pain, severe) Qty: 20 0RF aspirin [Ecotrin Low Strength] 81 mg Tablet,Delayed Release (Dr/Ec) 81 mg PO DAILY Discharge Orders: Discharge Order (Routine); Ordered 10/15/24 Ordered By: Aureliano Panchal Admission Data Admit Date/Time: 10/13/24 11:32 Attending Provider: Aureliano Panchal Admit Provider: Aureliano Panchal Primary Care Provider: Franco Lopez Other Providers: [facility]; Nani Rojas
--- NOTE | 2024-10-15 10:49 | Hospitalist Progress Note ---
Date of Service October 15, 2024 Assessment & Plan (1) Other spondylosis with radiculopathy, lumbar region: Plan: 74 year old female with PMH significant for DM type II, diabetic peripheral angiopathy, CAD with history of inferior wall STEMI in 2001 s/p PCI with DAMIEN to RCA, HLD, HTN, PAD with history of aortobifemoral bypass in 2005 and s/p angioplasty of prior graft in 2019 due to femoral anastomotic stenoses, left subclavian artery stenosis, bilateral carotid artery stenosis, age-related osteoporosis, tobacco use disorder, and lumbar spondylosis with radiculopathy who underwent T12 L1-L2 decompression and fusion on 10/13/[address] Panchal. We have been consulted for post operative medical management. Lumbar spondylosis with radiculopathy POD#2 s/p T12 L1-L2 decompression and fusion on 10/13/[address] Panchal Activity level, pain control, DVT prophylaxis, bowel regimen, wound/drain care per primary team Continue incentive spirometer while awake PT/OT consults today with recommendation for d/c home Acute blood loss anemia Expected finding post-operatively EBL 150cc and SAMANTHA drain output 375cc so far Pre-op Hgb 14.1-> 10.6 today; Patient asymptomatic Will continue to trend CBC Leukocytosis WBC 18.9 today Likely secondary to steroids Low suspicion for infection with no s/s Monitor CBC daily Hypomagnesemia Mag 1.6 yesterday and replaced; now 1.8 Trend as needed Hypertension Intermittent soft BPs; now improved 157/65 Continue to hold hold home amlodipine and triamterene-HCTZ while inpatient; PCP followup needed Monitor BPs CAD, history of IA Hyperlipidemia Continue baby aspirin, statin, metoprolol succinate Diabetes type 2 Hgb A1C 6.9% in August 2024 Home glipizide on hold- may resume per home routine at discharge BSG ACHS and SSI while inpt Glycemic pharmacy consulted DVT Prophylaxis: TEDs/SCDs per primary team Code Status: FULL CODE PCP: Franco Lopez PA-C Disposition: dc to home in next 1-[address] Panchal Patient seen in collaboration with Dr Meek. Please see addendum. I spent a total of 30 minutes coordinating, documenting and providing care for this patient excluding time spent in the performance of separately billed services or time spent by another provider/QHP. (2) S/P spinal surgery: (3) HTN (hypertension): (4) CAD (coronary artery disease): (5) History of ST elevation myocardial infarction (STEMI): (6) DM type 2 (diabetes mellitus, type 2): Admission and Anticipated Discharge Date Admission Date: October 13, 2024 Supervising Physician Co-Signing Physician Notes Pt seen and examined by me, care coordinated w/ CURT Will, pls refer to her note above for further detail. Pt seen sitting in the chair this AM, feeling well. Pt reports pain is well controlled, she has been ambulating in hallway. Denies any fever, chills, chest pain, shortness of breath, abd.pain, n/v. She is breathing comfortably on RA, heart sounds regular. Current Hgb 10.8 stable from yesterday (10.6). Pt is doing well, likely to be discharged from hospital today. MD [place] Subjective Patient seen and examined at bedside. She was ambulating to the bathroom upon my arrival without difficulty. She reports feeling well with no pain to lower back. Denies dizziness, lightheadedness, chest pain, headache, shortness of breath, numbness/tingling to lower extremities, nausea/vomiting. Tolerating diet without difficulty and has had multiple bowel movements since yesterday. Urinating okay as well. Review of Systems Review of Systems: All systems reviewed & are unremarkable except as noted in Subjective Physical Exam Physical Exam: VITALS: Reviewed. WEIGHT/BMI reviewed. GEN: Healthy appearing, well-developed, NAD. PSYCH: Good Judgment. AOx3. Normal memory, mood, and affect. HEENT -Head: NC/AT; -Eyes: PERRL, EOMI. No discharge or redn ess; -Ears: External ears are normal. -Nose: Normal nares. -Mouth and throat: MMM. Normal gums, muc jesika, palate,. Good dentition. NECK: Supple, with no masses. CV: RRR, no m/r/g. LUNGS: CTAB, no w/r/c. ABD: Soft, NT/ND, NBS, no masses or organomegaly. : N/A SKIN: Warm, well perfused. Lumbar dressing C/D/I MSK: No deformities, Steady, balanced gait. EXT: No clubbing, cyanosis, or edema. NEURO: CN II-XII grossly intact. Normal muscle strength and tone. No focal deficits. Results & Data Results & Data Vital Signs (Past 12 Hours) Vital Signs Temp Pulse Resp BP Pulse Ox O2 Del Method 10/15/24 08:00 37.0 C 65 16 157/65 H 97 Room Air Laboratory Results Short CBC 10/15/24 Range/Units 11:00 WBC 18.99 H (4.8-10.8) K/ul Hgb 10.8 L (12.0-16.0) g/dl Hct 32.2 L (37.0-47.0) % Plt Count 204 (130-400) K/uL BMP 10/15/24 11:00 Sodium 137 Potassium 3.8 Chloride 101 Carbon Dioxide 27 BUN 15 Creatinine 0.66 Glucose 154 H Calcium 10.0 (3) HTN (hypertension) Hypertension type: unspecified Qualified Code(s): I10 - Essential (primary) hypertension (4) CAD (coronary artery disease) Associated angina: unspecified whether angina present Coronary Disease- Associated Artery/Lesion type: unspecified vessel or lesion type [place] vs. transplanted heart: [place] heart Qualified Code(s): I25.10 - Atherosclerotic heart disease of [place] coronary artery without angina pectoris (6) DM type 2 (diabetes mellitus, type 2) Diabetes mellitus complication status: with other specified complication Diabetes mellitus custodial insulin use: unspecified custodial insulin use status Qualified Code(s): E11.69 - Type 2 diabetes mellitus with other specified complication
[2024-10-15 11:52] LABS: Hematocrit (blood only) 32.2 % (37.0-47.0); Hemoglobin 10.8 g/dl (12.0-16.0); Mean Corpuscular Hemoglobin 30.8 pg (25.0-34.0); Mean Corpuscular Volume 91.7 fL (80.0-100.0); Platelet Count 204 K/uL (130-400); RDW Standard Deviation 42.2 fL (36.4-46.3); Red Blood Count 3.51 M/uL (4.20-5.40); White Blood Count 18.99 K/ul (4.8-10.8)
[2024-10-15 12:04] LABS: Anion Gap 9.0 (3-11); Calcium 10.0 mg/dl (8.6-10.3); Carbon Dioxide 27.0 mmol/L (21-32); Chloride 101.0 mmol/L (98-107); Magnesium 1.8 mg/dl (1.7-2.4); Potassium 3.8 mmol/L (3.5-5.1); Sodium 137.0 mmol/L (136-145)
[2024-10-15 12:10] LABS: Blood Urea Nitrogen 15.0 mg/dl (6-23); Creatinine Clr Calc Pharmacy 71.1 ml/min; Glucose 154.0 mg/dl (70-99(Fasting))
== END 2024-10-15 16:05 | disposition home health service (06) | DRG 427 ==
LOC: ASU 07:56 → 3W 11:32